=== PATIENT | male | born 1955 | race African-American/Black ===

== ENCOUNTER 2020-11-13 12:26 | Emergency (ER) | payer MEDICARE, MEDICAID, SELFPAY ==
[2020-11-13] VITALS (7 sets, daily range): BP systolic 134–148; BP diastolic 60–74; PULSE 65–70; RESP 14–20; TEMP 36.8; O2SAT 99–100
--- NOTE | ~2020-11-13 | XR_ITS ---
EXAMINATION: XR chest 1V EXAM DATE: 11/13/2020 13:00 INDICATION: Slurred speech. Stroke. TECHNIQUE: Portable AP frontal chest x-ray was obtained. Comparison is made to prior examination from 03/03/2017. FINDINGS: The lungs are clear. There are no pleural effusions. The cardiomediastinal silhouette is within normal limits. There is no pneumothorax suspected. The bones and soft tissues are unremarkab le. IMPRESSION: No acute cardiopulmonary findings. Reviewed, dictated and finalized at location B. NOMETER ASSEMBLER AND ADJUSTER
--- NOTE | ~2020-11-13 | CT_ITS ---
EXAMINATION: CTA brain carotid DATE: 11/13/2020 13:00 INDICATION: Left hemiparesis. Slurred speech. TECHNIQUE: Computed tomographic angiography (CTA) of the head was performed without and with 100 mL O mnipaque-350 intravenous contrast. CTA of the neck was performed with intravenous contrast. Automated exposure control and iterative reconstruction technique were employed. The dose-length product was 1 699.32 mGy-cm. Maximum intensity projection and volume rendered 3D-reconstructions were created by cristina arzate technologist on a separate workstation. COMPARISON: Head CT 03/03/2017 FINDINGS: HEAD CTA: There are old infarcts in the right cerebellum, susan, and right frontal lobe. There is an o ld infarct in left parietal lobe. There are scattered areas of low attenuation in the cerebral white matter. There is no intracranial hemorrhage, acute infarction, or abnormal intracranial mass lesion. The ventricles are normal in size. The paranasal sinuses are clear. The orbits are normal. The mastoi d air cells are normal. The vertebral arteries are codominant. There is no significant stenosis of ba silar artery or the posterior cerebral arteries. There is moderate stenosis of the intracranial inter nal carotid arteries. Anterior communicating artery is normal. The posterior communicating arteries a re normal. There is no aneurysm. NECK CTA: There are multiple nodules in the thyroid measuring up to 18 mm on the right. There is no s ignificant stenosis of the vertebral arteries. There is plaque in the proximal internal carotid arter ies. There is 0% stenosis of the proximal right internal carotid artery relative to normal distal ar enrike lumen diameter (NASCET criteria). There is 66% stenosis of the proximal left internal carotid ar enrike relative to normal distal artery lumen diameter. There is severe cervical spondylosis. IMPRESSION: 1. Multiple old infarcts in the brain. 2. Stable moderate nonspecific cerebral white matter disease, which likely represents chronic small v essel ischemic disease. 3. 0% stenosis of the proximal right internal carotid artery relative to normal distal artery lumen d iameter (NASCET criteria). 4. 66% stenosis of the proximal left internal carotid artery relative to normal distal artery lumen d iameter. 5. Multinodular goiter. Consider thyroid ultrasound for risk stratification. Reviewed, dictated and finalized at location A. R SHOP SUPERVISOR IMPRESSION: 1. Multiple old infarcts in the brain. 2. Stable moderate nonspecific cerebral white matter disease, which likely repr esents chronic small vessel ischemic disease. 3. 0% stenosis of the proximal right internal carotid artery relative to normal distal artery lumen diameter (NASCET criteria). 4. 66% stenosis of the proximal left internal carotid artery relative to normal distal artery lumen diameter. 5. Multinodular goiter. Consider thyroid ultrasound for risk stratification.
--- NOTE | 2020-11-13 12:36 | ECG_ITS ---
Measurements Intervals [place] Rate: 64 P: 58 DE: 198 QRS: -3 QRSD: 93 T: 10 QT: 391 QTc: 405 Interpretive Statements SINUS RHYTHM VOLTAGE CRITERIA FOR LVH BASELINE ARTIFACT- I, III, AVL, AVF BORDERLINE ECG Electronically Signed On 11-13-2020 12:55:58 ONLINE MARKETING DIRECTOR by Juanjo Prescott D.O.
[2020-11-13 12:47] LABS: Estimated CRCL calculation 46 ml/min; Estimated Glomerular Filt Rate 53
[2020-11-13 13:06] LABS: Glucose Point of Care 449 (65-105)
[2020-11-13 13:08] LABS: Basophils Absolute Auto 0.1 K/mm3 (0.0-0.1); Eosinophils Absolute Auto 0.1 K/mm3 (0-0.3); Eosinophils Percent Auto 1.7 % (0-4.4); Hematocrit 35.2 % (42.0-52.0); Immature Granulocyte Absolute 0.01 K/mm3 (0.00-0.031); Immature Granulocyte Percent A 0.2 % (0-0.5); Immature Platelet Fraction Pct 4.3 % (0.9-11.2); Lymphocytes Absolute Auto 1.14 K/mm3 (0.9-3.2); Lymphocytes Percent Auto 19.8 % (18.3-44.2); Mean Corpuscular HGB Conc 31.3 g/dl (32-36); Mean Corpuscular Hemoglobin 21.2 pg (26-34); Mean Platelet Volume 11.4 fl (7.4-10.4); Monocytes Absolute Auto 0.5 K/mm3 (0.1-0.6); Monocytes Percent Auto 8.5 % (2.6-8.5); Neutrophils Percent Auto 68.8 % (45.5-73.1); Platelet Count Result 247 k/mm3 (150-375); Red Blood Count 5.18 M/mm3 (4.6-6.20); Red Cell Distribution Width 15.9 % (11.5-14.5); White Blood Count 5.8 K/mm3 (4.5-10.0)
[2020-11-13 13:17] LABS: INR 0.9; Prothrombin Time 12.5 Seconds (11.1-14.7)
[2020-11-13 13:18] LABS: Partial Thromboplastin Time 22.5 SECONDS (22.3-36.8)
--- NOTE | 2020-11-13 13:19 | ED.NEUROSD ---
HPI - Neuro Symptoms/Deficit General Chief Complaint: Suspected CVA Stated Complaint: neuro defiects Time Seen by Provider: 11/13/20 12:35 Source: patient and family Mode of arrival: ambulatory Limitations: no limitations History of Present Illness HPI Narrative: Patient is a 65-year-old male complaining of slurred speech accompanied by left-sided weakness, numbness and unsteady gait due to the left-sided weakness that started approximately two and half hours prior to arrival, around 10:30 AM . Patient states that he has a history of strokes, had two of them, last one was couple years ago. Patient denies any visual disturbance. Patient states that he did have left-sided weakness that was very mild as a residual from his previous stroke but this morning the weakness is worse and unable to walk. Patient states he usually walks without any assist. Related Data Allergies Allergy/AdvReac Type Severity Reaction Status Date / Time No Known Allergies Allergy Unverified 03/02/17 23:58 Review of Systems Review of Systems: All systems reviewed & are unremarkable except as noted in HPI and below Constitutional: Constitutional: Denies body ache(s), Denies chills, Denies excessive sweating, Denies fatigue, Denies fever(s), Denies headache(s), Denies lethargy, Denies malaise and Denies weight loss Eyes: Eyes: Denies blurry vision, Denies change in vision and Denies loss of vision ENT: Denies dizziness, Denies ear discharge, Denies headache(s), Denies lip swelling, Denies epistaxis, Denies nasal congestion, Denies neck pain, Denies throat swelling and Denies tongue swelling Cardiovascular: Cardiovascular: Denies chest pain, Denies chest pain at rest, Denies chest pain with activity, Denies diaphoresis, Denies rapid heart rate, Denies edema, Denies irregular heart rhythm, Denies lightheadedness, Denies palpitations, Denies dyspnea and Denies dyspnea on exertion Respiratory: Respiratory: Denies chest congestion, Denies cough, Denies hemoptysis, Denies dyspnea and Denies dyspnea on exertion Gastrointestinal: Gastrointestinal: Denies abdominal pain, Denies melena, Denies hematochezia, Denies diarrhea, Denies nausea, Denies vomiting and Denies hematemesis Musculoskeletal: Musculoskeletal: Denies abnormal gait, Denies deformity, Denies joint swelling, Denies limited range of motion, Denies neck pain and Denies numbness Neurologic: Denies confusion, Denies dizziness, Denies headache(s), Denies focal weakness, Denies numbness and Denies weakness Psychiatric: Psychiatric: Denies confusion, Denies depression, Denies auditory hallucinations, Denies homicidal ideation and Denies suicidal ideation Endocrine: Endocrine: Denies cold intolerance, Denies excessive sweating, Denies fatigue, Denies heat intolerance and Denies palpitations Hematologic/Lymphatic: Hematologic/Lymphatic: Denies easy bleeding and Denies easy bruising Allergic/Immunologic: Allergic/Immunologic: Denies lip swelling, Denies throat swelling and Denies tongue swelling PMFSH Comments Past medical history: CVA, hypertension, hyperlipidemia, diabetes Family history: Hypertension Social history ex-smoker, no EtOH or drug use Exam Const: General: cooperative, healthy appearing, comfortable, no acute distress, well developed, alert and awake; No confusion Orientation/consciousness: oriented to person, oriented to place, oriented to time, patient oriented x3 and No confusion Limitations: no limitations HENMT: Head: normal to inspection, normocephalic and atraumatic Ears: hearing grossly normal bilaterally, TM normal on the right and TM normal on the left General nose exam: Normal external nose present, Normal nares present and No nasal discharge present Face and sinus: normal facial exam Mouth: Yes Normal oral and palatal mucosa present, Yes lip normal, Yes tongue normal and Yes oropharynx normal Throat: posterior oropharynx normal, tonsils normal and uvula midline Eyes: General: appearance nor
[2020-11-13 13:45] LABS: Potassium 4.5 mmol/L (3.4-5.0)
[2020-11-13] MEDS: LACTATED RINGERS 1,000 ML 999 ML IV CONT (13:45)
[2020-11-13 13:47] LABS: Alanine Aminotransferase 22 U/L (4-50); Alkaline Phosphatase 138 U/L (38-126); Anion Gap 10 mmol/L (8-16); Aspartate Amino Transferase 25 U/L (17-59); Bilirubin,Total 0.4 mg/dL (0.2-1.3); Blood Urea Nitrogen 25 mg/dL (9-20); Calcium 9.1 mg/dL (8.4-10.2); Carbon Dioxide 23 mmol/L (22-30); Chloride 101 mmol/L (98-107); Estimated CRCL calculation 48 ml/min; Estimated Glomerular Filt Rate 57; Glucose 386 mg/dL (75-110); Sodium 134 mmol/L (137-145)
[2020-11-13 13:57] LABS: Troponin I < 0.012 ng/mL (0.000-0.034)
== END 2020-11-13 14:39 | disposition short-term general hospital (02) ==
LOC: ANHED 14:21
PROVIDERS: Emergency Provider Emergency Medicine; PCP Internal Medicine Infectious Disease
DX: I63.9 Cerebral infarction, unspecified (principal); R29.701 NIHSS score 1; I69.954 Hemiplegia and hemiparesis following unspecified cerebrovascular disease affecting left non-dominant side; I10 Essential (primary) hypertension; E78.5 Hyperlipidemia, unspecified; E11.9 Type 2 diabetes mellitus without complications; Z87.891 Personal history of nicotine dependence; R94.31 Abnormal electrocardiogram [ECG] [EKG]
CPT/HCPCS: 70496; 70498; 71045; 80053; 82948; 84484; 85025; 85055; 85610; 85730; 93005; 96365; 99284; J2997; J7120; Q9967

== ENCOUNTER 2020-11-20 13:50 | IRF | payer MEDICARE, MEDICAID, SELFPAY ==
--- NOTE | ~2020-11-20 | XR_ITS ---
EXAMINATION: XR barium swallow modified EXAM DATE: 11/22/2020 12:53 INDICATION: Dysphagia. Stroke. Cough. TECHNIQUE: Modified barium esophagram was performed by myself to administered fluoroscopy, in conjun ction with speech pathologist who administered barium in varying consistencies as per speech patholog ist documentation. This was recorded on tape. The DAP for this procedure was 1.3 Gycm2. FINDINGS: Oral stage: Premature spillage. Pharyngeal phase: Adequate function. Laryngeal penetration: None. Aspiration: None. Laryngeal sensitivity: Present. IMPRESSION: Patient tolerated oral feedings in the upright position. Please refer to speech patholo gist findings and specific feeding recommendations. Reviewed, dictated and finalized at location A. IMPRESSION: Patient tolerated oral feedings in the upright position. Please r efer to speech pathologist findings and specific feeding recommendations.
[2020-11-20 13:50] VITALS: BP 160/79; PULSE 81; RESP 18; TEMP 36.2; O2SAT 100; BMI 27.5
--- NOTE | 2020-11-20 14:17 | ADMGEN ---
This patient, Raza Radford, was admitted to [facility] Room 226-02. Patient/family oriented to hospital policies and general routines including ID bracelet, bed and alarms, visiting hours, pain management, procedures, bathroom and other care routines, personal items, smoking policy, room service/diet, and visiting hours. Information on how to activate the Rapid Response Team has been discussed. Patient/Family are encouraged to report perceived risks to care and to ask questions if they do not understand what they are told or what they should do.
--- NOTE | 2020-11-20 15:13 | WPDREHABHP ---
H&P: HPI History of Present Illness Date/Time: 11/20/20 15:13 Chief Complaint: HISTORY OF PRESENT ILLNESS: The patient's primary rehab impairment category is stroke The etiologic diagnosis is left upper susan acute infarct I saw this patient [id number] on 11/20/2020 The patient is a [] Therapy was initiated at the acute care facility and the patient transferred to us from [[facility]] on [] FALLS OR SURGERIES: The patient has had [no] major surgeries in the 100 days prior to admission. They had [no] falls in the past year. They had [no] falls with injury in the past year. PAST MEDICAL HISTORY: hypertension, hyperlipidemia diabetes mellitus, residual dysarthria, residual left-sided weakness, right pontine stroke. [] PAST SURGICAL HISTORY: [] SOCIAL HISTORY: [] FAMILY HISTORY: [] PRIOR LEVEL OF FUNCTION: Eating was [INDEPENDENT] Oral Care was [INDEPENDENT] Toileting Hygiene was [INDEPENDENT] Shower/Bathing was [INDEPENDENT] Upper Body Dressing was [INDEPENDENT] Lower Body Dressing was [INDEPENDENT] Donning/Almyra Footwear was [INDEPENDENT] Rolling Left and Right was [INDEPENDENT] Sit to Lying was [INDEPENDENT] Lying to Sitting was [INDEPENDENT] Sit to Stand was [INDEPENDENT] Bed to Chair Transfers was [INDEPENDENT] Toilet Transfers was [INDEPENDENT] Walking was [INDEPENDENT] [>500 feet] with [NO DEVICE] Wheelchair Mobility was [NOT APPLICABLE PRIOR TO ADMISSION] Stairs were [INDEPENDENT] CURRENT LEVEL OF FUNCTION: Eating was [SET UP ONLY] Oral Care was [SET UP ONLY] Toileting Hygiene was [] Shower/Bathing was [] Upper Body Dressing was [] Lower Body Dressing was [] Donning/Almyra Footwear was [] Rolling Left and Right was [] Sit to Lying was [] Lying to Sitting was [] Sit to Stand was [] Bed to Chair Transfers were [] Toilet Transfers were [] Walking was [] Wheelchair Mobility was [] Stairs were [] GOALS: Our therapists will evaluate the patient and establish the goals. However, upon pre-admission screening, the expected goals were to be [INDEPENDENT] with self-care, [INDEPENDENT] with transfers, and [INDEPENDENT] with functional mobility so that the patient can return home. ESTIMATED LENGTH OF STAY: [10-14 days] POTENTIAL BARRIERS TO DISCHARGE: [Patient lives alone.] [Family needs training.] [Severity of condition.] [Architectural barriers.] ACTIVE CO-MORBIDITIES PRESENT ON ADMISSION: Active co-morbidities include []. The above co-morbidities impact the patient's function and/or functional outcome by [] [facility] Family History Family History (Updated 11/20/20 @ 14:53 by Valerie Cook RN) Mother Diabetes mellitus Cerebrovascular accident Hypertension Father Cerebrovascular accident Hypertension Social History Social History Smoking status: Former smoker Alcohol intake: former Substance use: former Gender identity (if verbalized by the patient): Male Spiritual care concerns: No Meds Home Medications and Allergies Home Medications Medication Instructions Recorded Confirmed Type amlodipine 11/13/20 History atorvastatin 11/13/20 11/13/20 History carvedilol 11/13/20 History citalopram mg 11/13/20 History clopidogrel 11/13/20 History enalapril maleate 11/13/20 History glimepiride mg 11/13/20 History hydrochlorothiazide 11/13/20 History insulin glargine [Lantus Solostar SUBCUT 11/13/20 History U-100 Insulin] Allergies Allergy/AdvReac Type Severity Reaction Status Date / Time No Known Allergies Allergy Unverified 03/02/17 23:58 Vital Signs Vital Signs - 24 hr 11/20/20 13:50 Temperature 36.2 C L Pulse Rate 81 Respiratory Rate 18 Blood Pressure 160/79 H Pulse Oximetry 100
--- NOTE | 2020-11-20 15:58 | WPDREHABHP ---
H&P: HPI History of Present Illness Date/Time: 11/20/20 15:58 Chief Complaint: CVA Narrative: The patient's primary rehab impairment category is: Stroke The etiological diagnosis is left upper susan acute infarct Patient was seen [id number] on 11/20/2020 this is a 65-year-old male with past medical history of hypertension, hyperlipidemia, diabetes mellitus and 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 CT of the of the brain showed no acute stroke. CT AA was negative for large vessel occlusion. Patient was given tPA for an NIH SS of 4 and was transferred to [facility]. MRI showed a small acute infarct in the left upper susan. CTA was notable for 60% stenosis in the left extracranial ICA. Echo showed an ejection fraction of of 67%. Patient was placed on aspirin Plavix and Atrovent statin. A swallow test was performed and patient past. Hospital course revealed impaired balance, decreased safety awareness, left-sided weakness, decreased gross motor is controlled. Patient also complained of backache and flank pain he was evaluate for retroperitoneal hematoma in the setting of a tPA administration. Ultrasound was negative. Back pain resolved on 11/16/2020. COVID: The patient has not traveled outside the [place] are had contact with someone who is ill that has traveled outside the [place] in the past 21 days. Patient has not traveled to an area of the [place] that is experiencing known transmission of the Coronavirus and has not had close personal contact with anyone that has. Patient does not have a fever. The patient is not experiencing lower respiratory illness symptoms. COVID test was negative on 11/19/2020. Therapy was initiated at the acute care facility and the patient is being transferred to us from [facility] on 11/20/2020. FALLS OR SURGERIES: The patient has had no major surgeries in the 100 days prior to admission. They had no falls in the past year. They had no falls with injury in the past year. PRIOR LEVEL OF FUNCTION: Eating was [INDEPENDENT] Oral Care was [INDEPENDENT] Toileting Hygiene was [INDEPENDENT] Shower/Bathing was [INDEPENDENT] Upper Body Dressing was [INDEPENDENT] Lower Body Dressing was [INDEPENDENT] Donning/Kiefer Footwear was [INDEPENDENT] Rolling Left and Right was [INDEPENDENT] Sit to Lying was [INDEPENDENT] Lying to Sitting was [INDEPENDENT] Sit to Stand was [INDEPENDENT] Bed to Chair Transfers was [INDEPENDENT] Toilet Transfers was [INDEPENDENT] Walking was [INDEPENDENT] [>500 feet] with cane and walker Wheelchair Mobility was NOT APPLICABLE PRIOR TO ADMISSION Stairs were INDEPENDENT CURRENT LEVEL OF FUNCTION: Eating was independent Oral Care was partial to moderate assist Toileting Hygiene was partial to moderate assist Shower/Bathing was partial to moderate assist Upper Body Dressing was partial to moderate assist Lower Body Dressing was supervision or touching assistance Donning/Kiefer Footwear was supervision or touching assistance Rolling Left and Right was supervision or touching assistance Sit to Lying was supervision or touching assistance Lying to Sitting was partial to moderate assist Sit to Stand was partial to moderate assist Bed to Chair Transfers were partial to moderate assist Toilet Transfers were partial to moderate assist Walking was 60 ft with a roller walker and partial to moderate assistance. Wheelchair Mobility was Not tested Stairs were not test GOALS: Our therapists will evaluate the patient and establish the goals. However, upon pre-admission screening, the expected goals were to be [INDEPENDENT] with self-care, [INDEPENDENT] with transfers, and [INDEPENDENT] with functional mobility so that the patient can return home. ESTIMATED LENGTH OF STAY: 7-10 days POTENTIAL BARRI
[2020-11-20 16:55] LABS: Glucose Point of Care 119 (65-105)
[2020-11-20] MEDS: INSULIN GLARGINE (*BKC) 100 UNITS/ML 10 UNITS SUB-Q (17:47)
[2020-11-20] MEDS: INSULIN ASPART (*BKC) 100 UNITS/ML 12 UNITS SUB-Q (17:49)
[2020-11-20 20:37] VITALS: BP 131/80; PULSE 73; RESP 18; TEMP 36.2; O2SAT 100
[2020-11-20 21:43] VITALS: PULSE 68
[2020-11-20] MEDS: ATORVASTATIN 40 MG TABLET PO (21:43)
[2020-11-20] MEDS: carvediloL 6.25 MG TABLET PO (21:43)
[2020-11-20 21:52] LABS: Glucose Point of Care 64 (65-105)
--- NOTE | 2020-11-20 22:13 | PC.NURSE ---
Novolog not given. BS 66. notified.
--- NOTE | 2020-11-20 22:53 | PC.NURSE ---
Pt 2100 dose of insulin held due to low BS. Dr Taqueria Pike made aware.
[2020-11-21 01:11] LABS: Glucose Point of Care 281 (65-105)
[2020-11-21 05:23] VITALS: BP 124/65; PULSE 67; RESP 18; TEMP 36.2; O2SAT 100
[2020-11-21 05:28] LABS: Anion Gap 5 mmol/L (8-16); Blood Urea Nitrogen 19 mg/dL (9-20); Calcium 8.7 mg/dL (8.4-10.2); Carbon Dioxide 28 mmol/L (22-30); Chloride 103 mmol/L (98-107); Estimated CRCL calculation 45 ml/min; Estimated Glomerular Filt Rate > 60; Glucose 191 mg/dL (75-110); Potassium 4.6 mmol/L (3.4-5.0); Sodium 136 mmol/L (137-145)
[2020-11-21 05:39] LABS: Basophils Absolute Auto 0.1 K/mm3 (0.0-0.1); Basophils Percent Auto 0.8 % (0.2-1.2); Eosinophils Absolute Auto 0.1 K/mm3 (0-0.3); Eosinophils Percent Auto 0.8 % (0-4.4); Hematocrit 34.6 % (42.0-52.0); Hemoglobin 10.8 g/dL (14.0-18.0); Immature Granulocyte Absolute 0.03 K/mm3 (0.00-0.031); Immature Granulocyte Percent A 0.3 % (0-0.5); Lymphocytes Absolute Auto 2.32 K/mm3 (0.9-3.2); Lymphocytes Percent Auto 25.4 % (18.3-44.2); Mean Corpuscular HGB Conc 31.2 g/dl (32-36); Mean Corpuscular Hemoglobin 21.1 pg (26-34); Mean Corpuscular Volume 67.4 fl (80-100); Mean Platelet Volume 10.4 fl (7.4-10.4); Monocytes Absolute Auto 0.9 K/mm3 (0.1-0.6); Monocytes Percent Auto 9.5 % (2.6-8.5); Neutrophils Absolute Auto 5.8 K/mm3 (1.3-6.7); Neutrophils Percent Auto 63.2 % (45.5-73.1); Platelet Count Result 277 k/mm3 (150-375); Red Blood Count 5.13 M/mm3 (4.6-6.20); Red Cell Distribution Width 15.7 % (11.5-14.5); White Blood Count 9.1 K/mm3 (4.5-10.0)
[2020-11-21 06:16] LABS: Glucose Point of Care 151 (65-105)
[2020-11-21] MEDS: ASPIRIN 81 MG CHEWABLE TABLET PO (08:41)
[2020-11-21] MEDS: SENNA/DOCUSATE SODIUM TABLET 1 TAB PO (08:41)
[2020-11-21] MEDS: CITALOPRAM HYDROBROMIDE 20 MG TABLET PO (08:41)
[2020-11-21] MEDS: ENALAPRIL MALEATE 10 MG TABLET 20 MG PO (08:41)
[2020-11-21] MEDS: hydroCHLOROthiazide 25 MG TABLET PO (08:41)
[2020-11-21] MEDS: metFORMIN HCL 500 MG TABLET PO (08:41)
[2020-11-21 08:42] VITALS: PULSE 66
[2020-11-21] MEDS: CLOPIDOGREL BISULFATE 75 MG TABLET PO (08:42)
[2020-11-21] MEDS: carvediloL 6.25 MG TABLET PO ×2 (08:42→21:19)
[2020-11-21] MEDS: INSULIN ASPART (*BKC) 100 UNITS/ML 12 UNITS SUB-Q (08:44)
[2020-11-21 08:55] LABS: Glucose Point of Care 267 (65-105)
--- NOTE | 2020-11-21 11:18 | WPDNEURORHBP ---
Subjective Date/time seen: 11/21/20 11:18 Interval history: this is a 65-year-old male who has been on the rehab unit from a prior stroke. Patient is being admitted for further stroke rehabilitation following a small acute infarct to the left upper susan. 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 Patient is requesting a podiatry consult. Patient voices no complaints. Review of Systems Review of Systems: All systems reviewed & are unremarkable except as noted in HPI and below Functional Status Transfers Ability Ability to Transfer In/Out of Chair: Minimum Assistance X 1 Exam Narrative: Exam Narrative: Head is normocephalic. Facial asymmetry is noted. Speech is dysarthric. Heart rate and rhythm is regular. Lungs are clear to auscultation. Abdomen is soft nontender. Musculoskeletal exam reveals good strength bilaterally. Patient does demonstrate impulsivity. Patient also demonstrates balance deficits and motor coordination deficits. Objective Data Vital Signs Vital Signs: Vital Signs - 24 hr 11/20/20 13:50 11/20/20 20:37 11/20/20 21:43 Temperature 36.2 C L 36.2 C L Pulse Rate 81 73 68 Respiratory Rate 18 18 Blood Pressure 160/79 H 131/80 Pulse Oximetry 100 100 11/21/20 05:23 11/21/20 08:42 Temperature 36.2 C L Pulse Rate 67 66 Respiratory Rate 18 Blood Pressure 124/65 Pulse Oximetry 100 Intake/Output Intake/Output: Intake & Output 11/18/20 11/19/20 11/20/20 11/21/20 23:59 23:59 23:59 23:59 Intake Total 240 240 Balance 240 240 Meds/Results Medications: Active Medications Generic Name Dose Route Start Last Admin Trade Name Freq PRN Reason Stop Dose Admin Acetaminophen 650 mg 11/20/20 15:39 Acetaminophen 325 Mg Tablet PO Q4H PRN Mild Pain (1-3) Aspirin 81 mg 11/21/20 09:00 11/21/20 08:41 Aspirin 81 Mg Chewable Tablet PO 12/21/20 09:01 81 mg DAILY ASA Administration Atorvastatin Calcium 40 mg 11/20/20 21:00 11/20/20 21:43 Atorvastatin 40 Mg Tablet PO 40 mg HS ASA Administration Carvedilol 6.25 mg 11/20/20 21:00 11/21/20 08:42 Carvedilol 6.25 Mg Tablet PO 6.25 mg Q12HR ASA Administration Citalopram Hydrobromide 20 mg 11/21/20 09:00 11/21/20 08:41 Citalopram Hydrobromide 20 Mg Tablet PO 20 mg QAM ASA Administration Clopidogrel Bisulfate 75 mg 11/21/20 09:00 11/21/20 08:42 Clopidogrel Bisulfate 75 Mg Tablet PO 75 mg DAILY ASA Administration Enalapril Maleate 20 mg 11/21/20 09:00 11/21/20 08:41 Enalapril Maleate 10 Mg Tablet PO 20 mg DAILY ASA Administration Hydrochlorothiazide 25 mg 11/21/20 09:00 11/21/20 08:41 Hydrochlorothiazide 25 Mg Tablet PO 25 mg DAILY ASA Administration Insulin Aspart 12 units 11/20/20 17:00 11/21/20 08:44 Insulin Aspart (*Bkc) 100 Units/Ml SUB-Q 12 units QID ASA Administration Insulin Glargine 10 units 11/20/20 18:00 11/20/20 17:47 Insulin Glargine (*Bkc) 100 Units/Ml SUB-Q 10 units QPM ASA Administration Metformin HCl 500 mg 11/21/20 08:00 11/21/20 08:41 Metformin Hcl 500 Mg Tablet PO 11/26/20 10:00 500 mg DAILY@0800 ASA Administration Metformin HCl 500 mg 11/27/20 08:00 Metformin Hcl 500 Mg Tablet PO BIDWM [facility] Polyethylene Glycol 17 gm 11/20/20 15:39 Polyethylene Glycol 3350 17 Gm Powd.Pack PO DAILY PRN Constipation Senna/Docusate Sodium 1 tab 11/21/20 09:00 11/21/20 08:41 Senna/Docusate Sodium Tablet PO 1 tab DAILY ASA Administration Labs Labs: Laboratory Results - last 24 hr 11/20/20 11/20/20 11/21/20 16:52 21:42 01:08 WBC RBC Hgb Hct MCV MCH MCHC RDW Plt Count MPV Immature Gran % (Auto) Neut % (Auto) Lymph % (Auto) [place] % (Auto) Eos % (Auto) Baso % (Auto) Lymph # (Auto) [place] # (Auto) Eos # (Auto) Baso #
[2020-11-21 11:56] LABS: Glucose Point of Care 64 (65-105)
[2020-11-21 13:09] VITALS: BMI 27.5
[2020-11-21 14:00] VITALS: BP 123/83; PULSE 77; RESP 18; TEMP 36.2; O2SAT 100
--- NOTE | 2020-11-21 15:46 | RPD ---
INDIVIDUALIZED PLAN OF CARE FOR Raza Radford Brief Synthesis of Pre-Admission Screen, Post-Admission Evaluation and Therapy Evaluations: The patient presents to rehab with an acute left upper susan acute infarct. Comorbidities include hypertension, hyperlipidemia, diabetes mellitus with hyperglycemia, carotid artery stenosis, residual dysarthria, and left-sided weakness. The complexity of the patient's medical management, nursing, and therapy needs require an inpatient rehab hospital stay with a physician-led interdisciplinary team approach. The patient?s needs will be best met in an intensive program vs. at a lower level of care. The patient requires physician services for neurology services, medical oversight, and coordination of care. Emotional needs will be monitored as depression is a common sequelae of stroke. The patient needs physician monitoring and treatment of hypertension, diabetes mellitus with hyperglycemia, monitoring for adverse reactions to new medications, monitoring of infection, and pain control. The patient requires nursing services for frequent neuro checks, anticoagulation therapy, medication management and education, pressure relief and skin care management, monitoring of labs, diabetes management and education, and fall/safety precautions. The patient will participate in stroke-specific education regarding risk modification to decrease the risk of further stroke. Deficits include:ADLs, Balance, Endurance, Family Training/Education, Mobility, ROM, Safety, Speech, Strength, and Transfers. Industrial Roofer/Case Management for: Discharge Planning and Patient/Family Counseling Physical Therapy: 5 days per week for 75 minutes. Treatments may include: Therapeutic Exercise, Gait Training, Neuromuscular Re-education, Transfer Training, Community Reintegration, Bed Mobility, Patient/Family Education, Wheelchair Mobility Group Therapy/Concurrent Therapy Rationales: -Improve attention span during functional activities in a distracted environment. -Enhance problem solving and/or adequate judgment skills during functional activities in a distracted environment. -Promote increased safety awareness in a distracted environment to reduce fall risk with functional tasks, transfers, and ambulation to allow a more safe, self-sufficient return to the home environment. -Improve dynamic balance skills to promote safety and independence with functional activities in a distracted environment for maximum gain. Occupational Therapy: 5 days per week for 75 minutes. Treatments may include: Therapeutic Exercise, Therapeutic Activity, Cognitive Training, Self-Care Transfer Training, Community Reintegration, Home Management, Patient/Family Education, Wheelchair Mobility Training, Energy Conservation Training Group Therapy/Concurrent Therapy Rationales: -Allow therapist to observe and teach generalization and carry-over of skills learned in individual therapy. -Enhance problem solving and sequencing skills during therapeutic activities in a distracted environment. -Promote increased safety awareness in a realistic setting to reduce fall risk with functional tasks due to visual and verbal distractions. -Increase functional level with ADLs, ADL transfers and use of adaptive equipment through therapeutic activities with others while promoting safety to allow a more safe, self-sufficient return home. Speech Therapy: 5 days per week for 30 minutes. Treatments may include: Dysphasia Therapy, Speech/Language/Communication Therapy, Cognitive Training, Patient/Family Education Group Therapy/Concurrent Therapy - Rationale: -Allow therapist to observe and teach generalization and carry-over of skills learned in individual therapy. -Improve comprehension skills with complex or abstract ideas through discussion in a realistic setting. -Enhance problem solving skills with complex issues during activities in a distracted environment. -Promote increased memory skills and concentration in a
[2020-11-21 17:08] LABS: Glucose Point of Care 169 (65-105)
[2020-11-21 20:54] LABS: Glucose Point of Care 327 (65-105)
[2020-11-21 21:19] VITALS: PULSE 82
[2020-11-21] MEDS: ATORVASTATIN 40 MG TABLET PO (21:19)
[2020-11-21] MEDS: INSULIN GLARGINE (*BKC) 100 UNITS/ML 10 UNITS SUB-Q (21:19)
[2020-11-21 22:00] VITALS: BP 126/76; PULSE 76; RESP 18; TEMP 36.5; O2SAT 99
[2020-11-22 05:24] VITALS: BP 136/61; PULSE 72; RESP 18; TEMP 36.4; O2SAT 100
[2020-11-22 06:53] LABS: Glucose Point of Care 185 (65-105)
[2020-11-22] MEDS: metFORMIN HCL 500 MG TABLET PO (09:02)
[2020-11-22 09:03] VITALS: PULSE 72
[2020-11-22] MEDS: CITALOPRAM HYDROBROMIDE 20 MG TABLET PO (09:03)
[2020-11-22] MEDS: hydroCHLOROthiazide 25 MG TABLET PO (09:03)
[2020-11-22] MEDS: carvediloL 6.25 MG TABLET PO ×2 (09:03→20:42)
[2020-11-22] MEDS: CLOPIDOGREL BISULFATE 75 MG TABLET PO (09:03)
[2020-11-22] MEDS: ENALAPRIL MALEATE 10 MG TABLET 20 MG PO (09:03)
[2020-11-22] MEDS: ASPIRIN 81 MG CHEWABLE TABLET PO (09:03)
[2020-11-22] MEDS: SENNA/DOCUSATE SODIUM TABLET 1 TAB PO (09:03)
[2020-11-22 12:13] LABS: Glucose Point of Care 258 (65-105)
--- NOTE | 2020-11-22 12:17 | WPDNEURORHBP ---
Subjective Date/time seen: 11/22/20 12:17 Interval history: This is a 65-year-old male who has been on the rehab unit from a prior stroke. Patient is being admitted for further stroke rehabilitation following a small acute infarct to the left upper susan. 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 Patient is requesting a podiatry consult. Unfortunately, this cannot be accommodated while on [facility] Patient was instructed on safety concerns. Patient was instructed to ask for help before getting out of bed and to be more cognizant of his surroundings and safety. Review of Systems Review of Systems: All systems reviewed & are unremarkable except as noted in HPI and below Constitutional: Constitutional: Reports as per HPI Eyes: Eyes: Reports no additional eye complaints ENT: Reports system reviewed and no additional complaints, except as documented Cardiovascular: Cardiovascular: Reports no additional cardiovascular complaints Respiratory: Respiratory: Reports no additional respiratory complaints Gastrointestinal: Gastrointestinal: Reports no additional gastrointestinal complaints Functional Status Ambulation Ability Ability to Ambulate 10 Feet: Contact Guard Ability to Ambulate 50 Feet With 2 Turns: Contact Guard Ability to Ambulate 150 Feet: Contact Guard Ambulation Assistive Devices: Walker, Wheeled Transfers Ability Ability to Transfer In/Out of Chair: Minimum Assistance X 1 Exam Narrative: Exam Narrative: Head is normocephalic. Facial asymmetry is noted. Speech is dysarthric. Heart rate and rhythm is regular. Lungs are clear to auscultation. Abdomen is soft nontender. Musculoskeletal exam reveals good strength bilaterally. Patient does demonstrate impulsivity. Patient also demonstrates balance deficits and motor coordination deficits. Objective Data Vital Signs Vital Signs: Vital Signs - 24 hr 11/21/20 14:00 11/21/20 21:19 11/21/20 22:00 Temperature 36.2 C L 36.5 C Pulse Rate 77 82 76 Respiratory Rate 18 18 Blood Pressure 123/83 126/76 Pulse Oximetry 100 99 11/22/20 05:24 11/22/20 09:03 Temperature 36.4 C Pulse Rate 72 72 Respiratory Rate 18 Blood Pressure 136/61 Pulse Oximetry 100 Intake/Output Intake/Output: Intake & Output 11/19/20 11/20/20 11/21/20 11/22/20 23:59 23:59 23:59 23:59 Intake Total 240 720 240 Balance 240 720 240 Meds/Results Medications: Active Medications Generic Name Dose Route Start Last Admin Trade Name Sangita PRN Reason Stop Dose Admin Acetaminophen 650 mg 11/20/20 15:39 Acetaminophen 325 Mg Tablet PO Q4H PRN Mild Pain (1-3) Aspirin 81 mg 11/21/20 09:00 11/22/20 09:03 Aspirin 81 Mg Chewable Tablet PO 12/21/20 09:01 81 mg DAILY ASA Administration Atorvastatin Calcium 40 mg 11/20/20 21:00 11/21/20 21:19 Atorvastatin 40 Mg Tablet PO 40 mg HS ASA Administration Carvedilol 6.25 mg 11/20/20 21:00 11/22/20 09:03 Carvedilol 6.25 Mg Tablet PO 6.25 mg Q12HR ASA Administration Citalopram Hydrobromide 20 mg 11/21/20 09:00 11/22/20 09:03 Citalopram Hydrobromide 20 Mg Tablet PO 20 mg QAM ASA Administration Clopidogrel Bisulfate 75 mg 11/21/20 09:00 11/22/20 09:03 Clopidogrel Bisulfate 75 Mg Tablet PO 75 mg DAILY ASA Administration Dextrose 12.5 gm 11/21/20 11:49 Dextrose 50% 25 Gm/50 Ml Syringe IV PUSH PRN PRN Hypoglycemia Protocol Enalapril Maleate 20 mg 11/21/20 09:00 11/22/20 09:03 Enalapril Maleate 10 Mg Tablet PO 20 mg DAILY ASA Administration Glucagon 1 mg 11/21/20 11:49 Glucagon For Inj 1 Mg Vial IM PRN PRN Hypoglycemia Protocol Glucose 15 gm 11/21/20 11:49 Glucose Oral Gel 15 Gm Of Glucse In 37.5 Gm Tube PO PRN PRN Hypoglycemia Protocol Hydrochlorothiazide 25 mg 11/21/20 09:00 11/22/20 09:03 Hydrochlorothiaz
--- NOTE | 2020-11-22 13:08 | PCSTNOTE ---
Please refer to the Modified Barium Swallow Evaluation in the EMR.
[2020-11-22] MEDS: INSULIN ASPART (*BKC) 100 UNITS/ML SUB-Q (13:47)
[2020-11-22 14:00] VITALS: BP 127/67; PULSE 80; RESP 18; TEMP 36.2; O2SAT 95
[2020-11-22 16:42] LABS: Glucose Point of Care 159 (65-105)
[2020-11-22 20:00] VITALS: PULSE 76; RESP 18; O2SAT 95
[2020-11-22 20:42] VITALS: PULSE 76
[2020-11-22] MEDS: INSULIN GLARGINE (*BKC) 100 UNITS/ML 10 UNITS SUB-Q (20:44)
[2020-11-22] MEDS: ATORVASTATIN 40 MG TABLET PO (20:44)
[2020-11-22 21:03] LABS: Glucose Point of Care 180 (65-105)
[2020-11-22 22:00] VITALS: BP 143/60; PULSE 71; RESP 18; TEMP 36.1; O2SAT 100
[2020-11-23] VITALS (7 sets, daily range): BP systolic 123–135; BP diastolic 57–63; PULSE 64–70; RESP 16–18; TEMP 35.9–36.3; O2SAT 98–100
[2020-11-23 06:46] LABS: Glucose Point of Care 167 (65-105)
[2020-11-23] MEDS: CITALOPRAM HYDROBROMIDE 20 MG TABLET PO (09:03)
[2020-11-23] MEDS: CLOPIDOGREL BISULFATE 75 MG TABLET PO (09:03)
[2020-11-23] MEDS: carvediloL 6.25 MG TABLET PO ×2 (09:03→20:36)
[2020-11-23] MEDS: metFORMIN HCL 500 MG TABLET PO (09:03)
[2020-11-23] MEDS: SENNA/DOCUSATE SODIUM TABLET 1 TAB PO (09:04)
[2020-11-23] MEDS: ENALAPRIL MALEATE 10 MG TABLET 20 MG PO (09:04)
[2020-11-23] MEDS: hydroCHLOROthiazide 25 MG TABLET PO (09:04)
[2020-11-23] MEDS: ASPIRIN 81 MG CHEWABLE TABLET PO (09:04)
--- NOTE | 2020-11-23 10:15 | WPDNEURORHBP ---
Subjective Date/time seen: 11/23/20 10:15 Interval history: This is a 65-year-old male who has been on the rehab unit from a prior stroke. Patient is being admitted for further stroke rehabilitation following a small acute infarct to the left upper susan. 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 Patient was instructed on safety concerns. Patient was instructed to ask for help before getting out of bed and to be more cognizant of his surroundings and safety. Review of Systems Review of Systems: All systems reviewed & are unremarkable except as noted in HPI and below Constitutional: Constitutional: Reports as per HPI Eyes: Eyes: Reports no additional eye complaints ENT: Reports system reviewed and no additional complaints, except as documented Cardiovascular: Cardiovascular: Reports no additional cardiovascular complaints Respiratory: Respiratory: Reports no additional respiratory complaints Gastrointestinal: Gastrointestinal: Reports no additional gastrointestinal complaints Functional Status Ambulation Ability Ability to Ambulate 10 Feet: Standby Assistance Ability to Ambulate 50 Feet With 2 Turns: Standby Assistance Ability to Ambulate 150 Feet: Contact Guard Ambulation Assistive Devices: Walker, Wheeled Transfers Ability Ability to Transfer In/Out of Chair: Minimum Assistance X 1 Exam Narrative: Exam Narrative: Head is normocephalic. Facial asymmetry is noted. Speech is dysarthric. Heart rate and rhythm is regular. Lungs are clear to auscultation. Abdomen is soft nontender. Musculoskeletal exam reveals good strength bilaterally. Patient does demonstrate impulsivity. Patient also demonstrates balance deficits and motor coordination deficits. Transfers at SBA/Gait is CGA. Impulsivity affects safety. Objective Data Vital Signs Vital Signs: Vital Signs - 24 hr 11/22/20 14:00 11/22/20 20:00 11/22/20 20:42 Temperature 36.2 C L Pulse Rate 80 76 76 Respiratory Rate 18 18 Blood Pressure 127/67 Pulse Oximetry 95 95 11/22/20 22:00 11/23/20 04:58 11/23/20 09:03 Temperature 36.1 C L 35.9 C L Pulse Rate 71 70 70 Respiratory Rate 18 16 Blood Pressure 143/60 H 129/61 Pulse Oximetry 100 98 Intake/Output Intake/Output: Intake & Output 11/20/20 11/21/20 11/22/20 11/23/20 23:59 23:59 23:59 23:59 Intake Total 240 720 720 240 Balance 240 720 720 240 Meds/Results Medications: Active Medications Generic Name Dose Route Start Last Admin Trade Name Sangita PRN Reason Stop Dose Admin Acetaminophen 650 mg 11/20/20 15:39 Acetaminophen 325 Mg Tablet PO Q4H PRN Mild Pain (1-3) Aspirin 81 mg 11/21/20 09:00 11/23/20 09:04 Aspirin 81 Mg Chewable Tablet PO 12/21/20 09:01 81 mg DAILY ASA Administration Atorvastatin Calcium 40 mg 11/20/20 21:00 11/22/20 20:44 Atorvastatin 40 Mg Tablet PO 40 mg HS ASA Administration Carvedilol 6.25 mg 11/20/20 21:00 11/23/20 09:03 Carvedilol 6.25 Mg Tablet PO 6.25 mg Q12HR ASA Administration Citalopram Hydrobromide 20 mg 11/21/20 09:00 11/23/20 09:03 Citalopram Hydrobromide 20 Mg Tablet PO 20 mg QAM ASA Administration Clopidogrel Bisulfate 75 mg 11/21/20 09:00 11/23/20 09:03 Clopidogrel Bisulfate 75 Mg Tablet PO 75 mg DAILY ASA Administration Dextrose 12.5 gm 11/21/20 11:49 Dextrose 50% 25 Gm/50 Ml Syringe IV PUSH PRN PRN Hypoglycemia Protocol Enalapril Maleate 20 mg 11/21/20 09:00 11/23/20 09:04 Enalapril Maleate 10 Mg Tablet PO 20 mg DAILY ASA Administration Glucagon 1 mg 11/21/20 11:49 Glucagon For Inj 1 Mg Vial IM PRN PRN Hypoglycemia Protocol Glucose 15 gm 11/21/20 11:49 Glucose Oral Gel 15 Gm Of Glucse In 37.5 Gm Tube PO PRN PRN Hypoglycemia Protocol Hydrochlorothiazide 25 mg 11/21/20 09:00 11/23/20 09:04 Hydrochl
[2020-11-23 11:51] LABS: Glucose Point of Care 191 (65-105)
[2020-11-23 16:51] LABS: Glucose Point of Care 195 (65-105)
[2020-11-23] MEDS: ATORVASTATIN 40 MG TABLET PO (20:36)
[2020-11-23] MEDS: INSULIN GLARGINE (*BKC) 100 UNITS/ML 10 UNITS SUB-Q (20:37)
[2020-11-23 21:55] LABS: Glucose Point of Care 269 (65-105)
[2020-11-24 05:38] VITALS: BP 123/79; PULSE 62; TEMP 36.1; O2SAT 100
[2020-11-24 06:41] LABS: Glucose Point of Care 143 (65-105)
[2020-11-24] MEDS: metFORMIN HCL 500 MG TABLET PO (08:15)
[2020-11-24 08:16] VITALS: PULSE 62
[2020-11-24] MEDS: ENALAPRIL MALEATE 10 MG TABLET 20 MG PO (08:16)
[2020-11-24] MEDS: CLOPIDOGREL BISULFATE 75 MG TABLET PO (08:16)
[2020-11-24] MEDS: ASPIRIN 81 MG CHEWABLE TABLET PO (08:16)
[2020-11-24] MEDS: carvediloL 6.25 MG TABLET PO ×2 (08:16→20:18)
[2020-11-24] MEDS: CITALOPRAM HYDROBROMIDE 20 MG TABLET PO (08:16)
[2020-11-24] MEDS: SENNA/DOCUSATE SODIUM TABLET 1 TAB PO (08:16)
[2020-11-24] MEDS: hydroCHLOROthiazide 25 MG TABLET PO (08:16)
--- NOTE | 2020-11-24 08:23 | WPDNEURORHBP ---
Subjective Date/time seen: 11/24/20 08:23 Interval history: This is a 65-year-old male who has been on the rehab unit from a prior stroke. Patient is being admitted for further stroke rehabilitation following a small acute infarct to the left upper susan. 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 Patient was instructed on safety concerns. Patient was instructed to ask for help before getting out of bed and to be more cognizant of his surroundings and safety. Review of Systems Review of Systems: All systems reviewed & are unremarkable except as noted in HPI and below Constitutional: Constitutional: Reports as per HPI Eyes: Eyes: Reports no additional eye complaints ENT: Reports system reviewed and no additional complaints, except as documented Cardiovascular: Cardiovascular: Reports no additional cardiovascular complaints Respiratory: Respiratory: Reports no additional respiratory complaints Gastrointestinal: Gastrointestinal: Reports no additional gastrointestinal complaints Functional Status Ambulation Ability Ability to Ambulate 10 Feet: Standby Assistance Ability to Ambulate 50 Feet With 2 Turns: Standby Assistance Ability to Ambulate 150 Feet: Contact Guard Ambulation Assistive Devices: Walker, Wheeled Transfers Ability Ability to Transfer In/Out of Chair: Minimum Assistance X 1 Exam Narrative: Exam Narrative: Head is normocephalic. Facial asymmetry is noted. Speech is dysarthric. Heart rate and rhythm is regular. Lungs are clear to auscultation. Abdomen is soft nontender. Musculoskeletal exam reveals good strength bilaterally. Patient does demonstrate impulsivity. Patient also demonstrates balance deficits and motor coordination deficits. Transfers at SBA/Gait is CGA. Impulsivity affects safety. Biggest barrier is motor apraxia. Objective Data Vital Signs Vital Signs: Vital Signs - 24 hr 11/23/20 09:03 11/23/20 14:00 11/23/20 19:58 Temperature 36.2 C L Pulse Rate 70 64 64 Respiratory Rate 18 18 Blood Pressure 123/57 L Pulse Oximetry 99 99 11/23/20 20:36 11/23/20 21:19 11/24/20 05:38 Temperature 36.3 C L 36.1 C L Pulse Rate 68 66 62 Respiratory Rate 18 Blood Pressure 135/63 123/79 Pulse Oximetry 100 100 11/24/20 08:16 Temperature Pulse Rate 62 Respiratory Rate Blood Pressure Pulse Oximetry Intake/Output Intake/Output: Intake & Output 11/21/20 11/22/20 11/23/20 11/24/20 23:59 23:59 23:59 23:59 Intake Total 720 720 720 Balance 720 720 720 Meds/Results Medications: Active Medications Generic Name Dose Route Start Last Admin Trade Name Sangita PRN Reason Stop Dose Admin Acetaminophen 650 mg 11/20/20 15:39 Acetaminophen 325 Mg Tablet PO Q4H PRN Mild Pain (1-3) Aspirin 81 mg 11/21/20 09:00 11/24/20 08:16 Aspirin 81 Mg Chewable Tablet PO 12/21/20 09:01 81 mg DAILY ASA Administration Atorvastatin Calcium 40 mg 11/20/20 21:00 11/23/20 20:36 Atorvastatin 40 Mg Tablet PO 40 mg HS ASA Administration Carvedilol 6.25 mg 11/20/20 21:00 11/24/20 08:16 Carvedilol 6.25 Mg Tablet PO 6.25 mg Q12HR ASA Administration Citalopram Hydrobromide 20 mg 11/21/20 09:00 11/24/20 08:16 Citalopram Hydrobromide 20 Mg Tablet PO 20 mg QAM ASA Administration Clopidogrel Bisulfate 75 mg 11/21/20 09:00 11/24/20 08:16 Clopidogrel Bisulfate 75 Mg Tablet PO 75 mg DAILY ASA Administration Dextrose 12.5 gm 11/21/20 11:49 Dextrose 50% 25 Gm/50 Ml Syringe IV PUSH PRN PRN Hypoglycemia Protocol Enalapril Maleate 20 mg 11/21/20 09:00 11/24/20 08:16 Enalapril Maleate 10 Mg Tablet PO 20 mg DAILY ASA Administration Glucagon 1 mg 11/21/20 11:49 Glucagon For Inj 1 Mg Vial IM PRN PRN Hypoglycemia Protocol Glucose 15 gm 11/21/20 11:49 Glucose Oral Gel 15 Gm Of Glucse In 37.5 G
[2020-11-24 12:00] LABS: Glucose Point of Care 248 (65-105)
[2020-11-24] MEDS: INSULIN ASPART (*BKC) 100 UNITS/ML SUB-Q (12:01)
[2020-11-24 14:00] VITALS: BP 112/55; PULSE 64; RESP 16; TEMP 35.8; O2SAT 100
[2020-11-24 17:09] LABS: Glucose Point of Care 135 (65-105)
[2020-11-24 20:15] LABS: Glucose Point of Care 237 (65-105)
[2020-11-24 20:18] VITALS: PULSE 64
[2020-11-24] MEDS: INSULIN GLARGINE (*BKC) 100 UNITS/ML 10 UNITS SUB-Q (20:18)
[2020-11-24] MEDS: ATORVASTATIN 40 MG TABLET PO (20:18)
[2020-11-24 22:00] VITALS: BP 139/45; PULSE 70; RESP 16; TEMP 36.8; O2SAT 96
[2020-11-25 06:00] VITALS: BP 139/63; PULSE 63; RESP 16; TEMP 36.3; O2SAT 100
[2020-11-25 06:17] LABS: Glucose Point of Care 135 (65-105)
[2020-11-25 08:43] VITALS: PULSE 63
[2020-11-25] MEDS: carvediloL 6.25 MG TABLET PO ×2 (08:43→21:17)
[2020-11-25] MEDS: ASPIRIN 81 MG CHEWABLE TABLET PO (08:43)
[2020-11-25] MEDS: ENALAPRIL MALEATE 10 MG TABLET 20 MG PO (08:44)
[2020-11-25] MEDS: CLOPIDOGREL BISULFATE 75 MG TABLET PO (08:44)
[2020-11-25] MEDS: CITALOPRAM HYDROBROMIDE 20 MG TABLET PO (08:44)
[2020-11-25] MEDS: SENNA/DOCUSATE SODIUM TABLET 1 TAB PO (08:44)
[2020-11-25] MEDS: hydroCHLOROthiazide 25 MG TABLET PO (08:44)
[2020-11-25] MEDS: metFORMIN HCL 500 MG TABLET PO (08:44)
--- NOTE | 2020-11-25 10:54 | WPDNEURORHBP ---
Subjective Date/time seen: 11/25/20 10:54 Interval history: This is a 65-year-old male who has been on the rehab unit from a prior stroke. Patient is being admitted for further stroke rehabilitation following a small acute infarct to the left upper susan. 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 Patient was instructed on safety concerns. Patient was instructed to ask for help before getting out of bed and to be more cognizant of his surroundings and safety. Patient able to verbally tell examiner I need to slow down However, patient remains impulsive. Review of Systems Review of Systems: All systems reviewed & are unremarkable except as noted in HPI and below Functional Status Ambulation Ability Ability to Ambulate 10 Feet: Standby Assistance Ability to Ambulate 50 Feet With 2 Turns: Standby Assistance Ability to Ambulate 150 Feet: Standby Assistance Ambulation Assistive Devices: Walker, Wheeled Transfers Ability Ability to Transfer In/Out of Chair: Standby Assistance Exam Narrative: Exam Narrative: Head is normocephalic. Facial asymmetry is noted. Speech is dysarthric. Heart rate and rhythm is regular. Lungs are clear to auscultation. Abdomen is soft nontender. Musculoskeletal exam reveals good strength bilaterally. Patient does demonstrate impulsivity. Patient also demonstrates balance deficits and motor coordination deficits. Transfers at SBA/Gait is CGA. Impulsivity affects safety. Biggest barrier is motor apraxia and impulsivity Objective Data Vital Signs Vital Signs: Vital Signs - 24 hr 11/24/20 14:00 11/24/20 20:18 11/24/20 22:00 Temperature 35.8 C L 36.8 C Pulse Rate 64 64 70 Respiratory Rate 16 16 Blood Pressure 112/55 L 139/45 L Pulse Oximetry 100 96 11/25/20 06:00 11/25/20 08:43 Temperature 36.3 C L Pulse Rate 63 63 Respiratory Rate 16 Blood Pressure 139/63 Pulse Oximetry 100 Intake/Output Intake/Output: Intake & Output 11/22/20 11/23/20 11/24/20 11/25/20 23:59 23:59 23:59 23:59 Intake Total 855 246 9510 Balance 886 254 5563 Meds/Results Medications: Active Medications Generic Name Dose Route Start Last Admin Trade Name Freq PRN Reason Stop Dose Admin Acetaminophen 650 mg 11/20/20 15:39 Acetaminophen 325 Mg Tablet PO Q4H PRN Mild Pain (1-3) Aspirin 81 mg 11/21/20 09:00 11/25/20 08:43 Aspirin 81 Mg Chewable Tablet PO 12/21/20 09:01 81 mg DAILY ASA Administration Atorvastatin Calcium 40 mg 11/20/20 21:00 11/24/20 20:18 Atorvastatin 40 Mg Tablet PO 40 mg HS ASA Administration Carvedilol 6.25 mg 11/20/20 21:00 11/25/20 08:43 Carvedilol 6.25 Mg Tablet PO 6.25 mg Q12HR ASA Administration Citalopram Hydrobromide 20 mg 11/21/20 09:00 11/25/20 08:44 Citalopram Hydrobromide 20 Mg Tablet PO 20 mg QAM ASA Administration Clopidogrel Bisulfate 75 mg 11/21/20 09:00 11/25/20 08:44 Clopidogrel Bisulfate 75 Mg Tablet PO 75 mg DAILY ASA Administration Dextrose 12.5 gm 11/21/20 11:49 Dextrose 50% 25 Gm/50 Ml Syringe IV PUSH PRN PRN Hypoglycemia Protocol Enalapril Maleate 20 mg 11/21/20 09:00 11/25/20 08:44 Enalapril Maleate 10 Mg Tablet PO 20 mg DAILY ASA Administration Glucagon 1 mg 11/21/20 11:49 Glucagon For Inj 1 Mg Vial IM PRN PRN Hypoglycemia Protocol Glucose 15 gm 11/21/20 11:49 Glucose Oral Gel 15 Gm Of Glucse In 37.5 Gm Tube PO PRN PRN Hypoglycemia Protocol Hydrochlorothiazide 25 mg 11/21/20 09:00 11/25/20 08:44 Hydrochlorothiazide 25 Mg Tablet PO 25 mg DAILY ASA Administration Dextrose 1,000 mls @ 100 mls/hr 11/21/20 11:49 Dextrose 5% 1,000 Ml IVPB PRN PRN Hypoglycemia Protocol Insulin Aspart 3 - 6 units 11/21/20 12:00 11/25/20 08:42 Insulin Aspart (*Bkc) 100 Units/Ml SUB-Q Not Given
[2020-11-25 11:48] LABS: Glucose Point of Care 169 (65-105)
[2020-11-25 14:00] VITALS: BP 116/58; PULSE 72; RESP 18; TEMP 36.3; O2SAT 100
[2020-11-25 17:16] LABS: Glucose Point of Care 137 (65-105)
--- NOTE | 2020-11-25 17:21 | PCPTNOTE ---
Raza Radford was evaluated for a 2 wheeled walker on 11/25/2020 by this physical therapist. The 2 wheeled walker will resolve patient's mobility limitations and will be used for ADL's within the home. The patient can safely use the 2 wheeled walker. ?The 2 wheeled walker will resolve the patient?s mobility deficits, including decreased balance, incoordination, and LE weakness.
[2020-11-25 20:00] VITALS: PULSE 68; RESP 18; O2SAT 100
[2020-11-25 21:09] LABS: Glucose Point of Care 278 (65-105)
[2020-11-25 21:17] VITALS: PULSE 82
[2020-11-25] MEDS: ATORVASTATIN 40 MG TABLET PO (21:18)
[2020-11-25] MEDS: INSULIN GLARGINE (*BKC) 100 UNITS/ML 10 UNITS SUB-Q (21:19)
[2020-11-25 22:00] VITALS: BP 133/81; PULSE 68; RESP 18; TEMP 36.3; O2SAT 100
[2020-11-26 06:00] VITALS: BP 125/68; PULSE 67; RESP 16; TEMP 36; O2SAT 100
[2020-11-26 06:00] LABS: Glucose Point of Care 134 (65-105)
[2020-11-26 09:15] VITALS: PULSE 67
[2020-11-26] MEDS: CLOPIDOGREL BISULFATE 75 MG TABLET PO (09:15)
[2020-11-26] MEDS: SENNA/DOCUSATE SODIUM TABLET 1 TAB PO (09:15)
[2020-11-26] MEDS: carvediloL 6.25 MG TABLET PO ×2 (09:15→20:20)
[2020-11-26] MEDS: metFORMIN HCL 500 MG TABLET PO (09:15)
[2020-11-26] MEDS: hydroCHLOROthiazide 25 MG TABLET PO (09:15)
[2020-11-26] MEDS: ASPIRIN 81 MG CHEWABLE TABLET PO (09:15)
[2020-11-26] MEDS: CITALOPRAM HYDROBROMIDE 20 MG TABLET PO (09:15)
[2020-11-26] MEDS: ENALAPRIL MALEATE 10 MG TABLET 20 MG PO (09:16)
--- NOTE | 2020-11-26 11:37 | WPDNEURORHBP ---
Subjective Date/time seen: 11/26/20 11:37 Interval history: This is a 65-year-old male who has been on the rehab unit from a prior stroke. Patient is being admitted for further stroke rehabilitation following a small acute infarct to the left upper susan. 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 . Patient voices no complaints. Patient is seen during physical therapy and floor transfer training. Review of Systems Review of Systems: All systems reviewed & are unremarkable except as noted in HPI and below Functional Status Ambulation Ability Ability to Ambulate 10 Feet: Standby Assistance Ability to Ambulate 50 Feet With 2 Turns: Standby Assistance Ability to Ambulate 150 Feet: Standby Assistance Ambulation Assistive Devices: Walker, Wheeled Transfers Ability Ability to Transfer In/Out of Chair: Standby Assistance Exam Narrative: Exam Narrative: Head is normocephalic. Facial asymmetry is noted. Speech is dysarthric. Heart rate and rhythm is regular. Lungs are clear to auscultation. Abdomen is soft nontender. Musculoskeletal exam reveals weakness to the L quads from previous L TKR. Right hemiplegia persists. Patient does demonstrate impulsivity. Patient also demonstrates balance deficits and motor coordination deficits. Patient is independent with bed mobility. Patient is at standby to supervision with transfers. Patient is able to ambulate 400 ft with out a heel strike. Patient demonstrates left hip weakness. Patient is able to go up bilateral hand rails 12 steps with standby assistance. Hygiene and feeding are at standby assistance. Dressing and bathing of the lower extremity is at contact guard. Cognition continues to demonstrate impulsivity lack of insight. Objective Data Vital Signs Vital Signs: Vital Signs - 24 hr 11/25/20 14:00 11/25/20 20:00 11/25/20 21:17 Temperature 36.3 C L Pulse Rate 72 68 82 Respiratory Rate 18 18 Blood Pressure 116/58 L Pulse Oximetry 100 100 11/25/20 22:00 11/26/20 06:00 11/26/20 09:15 Temperature 36.3 C L 36.0 C L Pulse Rate 68 67 67 Respiratory Rate 18 16 Blood Pressure 133/81 125/68 Pulse Oximetry 100 100 Intake/Output Intake/Output: Intake & Output 11/23/20 11/24/20 11/25/20 11/26/20 23:59 23:59 23:59 23:59 Intake Total 720 1080 720 480 Balance 720 1080 720 480 Meds/Results Medications: Active Medications Generic Name Dose Route Start Last Admin Trade Name Sangita PRN Reason Stop Dose Admin Acetaminophen 650 mg 11/20/20 15:39 Acetaminophen 325 Mg Tablet PO Q4H PRN Mild Pain (1-3) Aspirin 81 mg 11/21/20 09:00 11/26/20 09:15 Aspirin 81 Mg Chewable Tablet PO 12/21/20 09:01 81 mg DAILY ASA Administration Atorvastatin Calcium 40 mg 11/20/20 21:00 11/25/20 21:18 Atorvastatin 40 Mg Tablet PO 40 mg HS ASA Administration Carvedilol 6.25 mg 11/20/20 21:00 11/26/20 09:15 Carvedilol 6.25 Mg Tablet PO 6.25 mg Q12HR ASA Administration Citalopram Hydrobromide 20 mg 11/21/20 09:00 11/26/20 09:15 Citalopram Hydrobromide 20 Mg Tablet PO 20 mg QAM ASA Administration Clopidogrel Bisulfate 75 mg 11/21/20 09:00 11/26/20 09:15 Clopidogrel Bisulfate 75 Mg Tablet PO 75 mg DAILY ASA Administration Dextrose 12.5 gm 11/21/20 11:49 Dextrose 50% 25 Gm/50 Ml Syringe IV PUSH PRN PRN Hypoglycemia Protocol Enalapril Maleate 20 mg 11/21/20 09:00 11/26/20 09:16 Enalapril Maleate 10 Mg Tablet PO 20 mg DAILY ASA Administration Glucagon 1 mg 11/21/20 11:49 Glucagon For Inj 1 Mg Vial IM PRN PRN Hypoglycemia Protocol Glucose 15 gm 11/21/20 11:49 Glucose Oral Gel 15 Gm Of Glucse In 37.5 Gm Tube PO PRN PRN Hypoglycemia Protocol Hydrochlorothiazide 25 mg 11/21/20 09:00 11/26/20 09:15 Hydrochlorothiazide 25 Mg Tablet PO 25 mg DA
[2020-11-26 12:03] LABS: Glucose Point of Care 216 (65-105)
[2020-11-26] MEDS: INSULIN ASPART (*BKC) 100 UNITS/ML SUB-Q (12:17)
--- NOTE | 2020-11-26 12:30 | PCNFU ---
Nutrition Follow-Up Complete: Decreased fat/cholesterol needs related to cardiovascular disease as evidenced by CVA. Goal: Patient to consume 75% of meals or greater. Patient is meeting goal. No new goal at this time. Pt current nutrition is diabetic consistent carbohydrate diet. Last recorded weight is 79.8 kg. Recommend re-weighing patient. Bowel Motility: + BM 11/25 Labs Reviewed: POC capillary glucose 134 Meds Noted: Lipitor, Coreg, Celexa, Plavix, Vasotec, Novolog, Lantus, Glucophage, Hydrochlorothiazide, Miralax, Senna Additional Notes: Spoke with patient. Patient reported having great appetite consuming 100% of all meals and enjoying the food. No nutritional questions or concerns at this time. Follow up every 7 days.
--- NOTE | 2020-11-26 13:10 | PCNSR ---
On 11/26/20, the student, Nat Zuniga, provided care and completed [facility] documentation on this patient. I have reviewed the student's documentation and agree with the findings.
[2020-11-26 14:00] VITALS: BP 118/53; PULSE 68; RESP 16; TEMP 36.4; O2SAT 100
[2020-11-26 16:53] LABS: Glucose Point of Care 98 (65-105)
[2020-11-26 20:00] VITALS: PULSE 69; RESP 18; O2SAT 98
[2020-11-26] MEDS: ATORVASTATIN 40 MG TABLET PO (20:19)
[2020-11-26 20:20] VITALS: PULSE 64
[2020-11-26] MEDS: INSULIN GLARGINE (*BKC) 100 UNITS/ML 10 UNITS SUB-Q (20:20)
[2020-11-26 21:59] VITALS: BP 142/73; PULSE 69; RESP 18; TEMP 36.4; O2SAT 98
[2020-11-26 22:03] LABS: Glucose Point of Care 208 (65-105)
[2020-11-27 06:00] VITALS: BP 136/68; PULSE 55; RESP 16; TEMP 35.6; O2SAT 100
[2020-11-27 06:58] LABS: Glucose Point of Care 119 (65-105)
[2020-11-27 08:33] VITALS: PULSE 68
[2020-11-27] MEDS: metFORMIN HCL 500 MG TABLET PO ×2 (08:33→17:47)
[2020-11-27] MEDS: carvediloL 6.25 MG TABLET PO ×2 (08:33→21:51)
[2020-11-27] MEDS: ASPIRIN 81 MG CHEWABLE TABLET PO (08:33)
[2020-11-27] MEDS: SENNA/DOCUSATE SODIUM TABLET 1 TAB PO (08:34)
[2020-11-27] MEDS: CLOPIDOGREL BISULFATE 75 MG TABLET PO (08:34)
[2020-11-27] MEDS: CITALOPRAM HYDROBROMIDE 20 MG TABLET PO (08:34)
[2020-11-27] MEDS: ENALAPRIL MALEATE 10 MG TABLET 20 MG PO (08:35)
[2020-11-27] MEDS: hydroCHLOROthiazide 25 MG TABLET PO (08:35)
--- NOTE | 2020-11-27 09:02 | WPDNEURORHBP ---
Subjective Date/time seen: 11/27/20 09:02 Interval history: This is a 65-year-old male who has been on the rehab unit from a prior stroke. Patient is being admitted for further stroke rehabilitation following a small acute infarct to the left upper susan. 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 Patient voices no complaints. Patient is seen while in bed. Review of Systems Review of Systems: All systems reviewed & are unremarkable except as noted in HPI and below Functional Status Ambulation Ability Ability to Ambulate 10 Feet: Standby Assistance Ability to Ambulate 50 Feet With 2 Turns: Contact Guard Ability to Ambulate 150 Feet: Contact Guard Ambulation Assistive Devices: Walker, Wheeled Transfers Ability Ability to Transfer In/Out of Chair: Contact Guard Exam Narrative: Exam Narrative: Head is normocephalic. Facial asymmetry is noted. Speech is dysarthric. Heart rate and rhythm is regular. Lungs are clear to auscultation. Abdomen is soft nontender. Musculoskeletal exam reveals weakness to the L quads from previous L TKR. Right hemiplegia persists. Patient does demonstrate impulsivity. Patient also demonstrates balance deficits and motor coordination deficits. Patient is independent with bed mobility. Patient is at standby to supervision with transfers. Patient is able to ambulate 400 ft with out a heel strike. Patient demonstrates left hip weakness. Patient is able to go up bilateral hand rails 12 steps with standby assistance. Hygiene and feeding are at standby assistance. Dressing and bathing of the lower extremity is at contact guard. Cognition continues to demonstrate impulsivity lack of insight. Patient with difficulty with medication mgmt. Objective Data Vital Signs Vital Signs: Vital Signs - 24 hr 11/26/20 09:15 11/26/20 14:00 11/26/20 20:00 Temperature 36.4 C L Pulse Rate 67 68 69 Respiratory Rate 16 18 Blood Pressure 118/53 L Pulse Oximetry 100 98 11/26/20 20:20 11/26/20 21:59 11/27/20 06:00 Temperature 36.4 C 35.6 C L Pulse Rate 64 69 55 L Respiratory Rate 18 16 Blood Pressure 142/73 H 136/68 Pulse Oximetry 98 100 11/27/20 08:33 Temperature Pulse Rate 68 Respiratory Rate Blood Pressure Pulse Oximetry Intake/Output Intake/Output: Intake & Output 11/24/20 11/25/20 11/26/20 03/24/21 23:59 23:59 23:59 23:59 Intake Total 1743 407 5575 360 Balance 0632 434 9093 360 Meds/Results Medications: Active Medications Generic Name Dose Route Start Last Admin Trade Name Freq PRN Reason Stop Dose Admin Acetaminophen 650 mg 11/20/20 15:39 Acetaminophen 325 Mg Tablet PO Q4H PRN Mild Pain (1-3) Aspirin 81 mg 11/21/20 09:00 11/27/20 08:33 Aspirin 81 Mg Chewable Tablet PO 12/21/20 09:01 81 mg DAILY ASA Administration Atorvastatin Calcium 40 mg 11/20/20 21:00 11/26/20 20:19 Atorvastatin 40 Mg Tablet PO 40 mg HS ASA Administration Carvedilol 6.25 mg 11/20/20 21:00 11/27/20 08:33 Carvedilol 6.25 Mg Tablet PO 6.25 mg Q12HR ASA Administration Citalopram Hydrobromide 20 mg 11/21/20 09:00 11/27/20 08:34 Citalopram Hydrobromide 20 Mg Tablet PO 20 mg QAM ASA Administration Clopidogrel Bisulfate 75 mg 11/21/20 09:00 11/27/20 08:34 Clopidogrel Bisulfate 75 Mg Tablet PO 75 mg DAILY ASA Administration Dextrose 12.5 gm 11/21/20 11:49 Dextrose 50% 25 Gm/50 Ml Syringe IV PUSH PRN PRN Hypoglycemia Protocol Enalapril Maleate 20 mg 11/21/20 09:00 11/27/20 08:35 Enalapril Maleate 10 Mg Tablet PO 20 mg DAILY ASA Administration Glucagon 1 mg 11/21/20 11:49 Glucagon For Inj 1 Mg Vial IM PRN PRN Hypoglycemia Protocol Glucose 15 gm 11/21/20 11:49 Glucose Oral Gel 15 Gm Of Glucse In 37.5 Gm Tube PO PRN PRN Hypoglycemia Protocol Hydrochlorothi
[2020-11-27 11:55] LABS: Glucose Point of Care 154 (65-105)
[2020-11-27 14:00] VITALS: BP 117/57; PULSE 65; RESP 18; TEMP 35.9; O2SAT 98
[2020-11-27 18:13] LABS: Glucose Point of Care 132 (65-105)
[2020-11-27 19:10] VITALS: PULSE 73; RESP 16; O2SAT 99
[2020-11-27 21:50] VITALS: BP 136/51; PULSE 73; RESP 16; TEMP 36.6; O2SAT 99
[2020-11-27 21:51] VITALS: PULSE 73
[2020-11-27] MEDS: ATORVASTATIN 40 MG TABLET PO (21:52)
[2020-11-27] MEDS: INSULIN GLARGINE (*BKC) 100 UNITS/ML 10 UNITS SUB-Q (21:52)
[2020-11-27 22:10] LABS: Glucose Point of Care 187 (65-105)
[2020-11-28 05:13] LABS: Basophils Absolute Auto 0.1 K/mm3 (0.0-0.1); Eosinophils Absolute Auto 0.1 K/mm3 (0-0.3); Eosinophils Percent Auto 1.5 % (0-4.4); Hemoglobin 10.7 g/dL (14.0-18.0); Immature Granulocyte Absolute 0.01 K/mm3 (0.00-0.031); Immature Granulocyte Percent A 0.2 % (0-0.5); Lymphocytes Absolute Auto 2.06 K/mm3 (0.9-3.2); Lymphocytes Percent Auto 35.1 % (18.3-44.2); Mean Corpuscular HGB Conc 30.6 g/dl (32-36); Mean Corpuscular Hemoglobin 21.2 pg (26-34); Mean Corpuscular Volume 69.4 fl (80-100); Mean Platelet Volume 9.8 fl (7.4-10.4); Monocytes Absolute Auto 0.5 K/mm3 (0.1-0.6); Monocytes Percent Auto 9.2 % (2.6-8.5); Neutrophils Absolute Auto 3.1 K/mm3 (1.3-6.7); Platelet Count Result 261 k/mm3 (150-375); Red Blood Count 5.04 M/mm3 (4.6-6.20); Red Cell Distribution Width 15.9 % (11.5-14.5); White Blood Count 5.9 K/mm3 (4.5-10.0)
[2020-11-28 05:27] LABS: Anion Gap 5 mmol/L (8-16); Blood Urea Nitrogen 26 mg/dL (9-20); Calcium 9.2 mg/dL (8.4-10.2); Carbon Dioxide 28 mmol/L (22-30); Chloride 107 mmol/L (98-107); Estimated CRCL calculation 40 ml/min; Estimated Glomerular Filt Rate 53; Glucose 108 mg/dL (75-110); Potassium 4.6 mmol/L (3.4-5.0); Sodium 140 mmol/L (137-145)
[2020-11-28 05:46] VITALS: BP 122/61; PULSE 58; RESP 16; TEMP 36; O2SAT 99
[2020-11-28 06:33] LABS: Glucose Point of Care 105 (65-105)
[2020-11-28] MEDS: SENNA/DOCUSATE SODIUM TABLET 1 TAB PO (08:45)
[2020-11-28 08:46] VITALS: PULSE 58
[2020-11-28] MEDS: metFORMIN HCL 500 MG TABLET PO ×2 (08:46→17:16)
[2020-11-28] MEDS: hydroCHLOROthiazide 25 MG TABLET PO (08:46)
[2020-11-28] MEDS: carvediloL 6.25 MG TABLET PO ×2 (08:46→20:17)
[2020-11-28] MEDS: ASPIRIN 81 MG CHEWABLE TABLET PO (08:46)
[2020-11-28] MEDS: ENALAPRIL MALEATE 10 MG TABLET 20 MG PO (08:46)
[2020-11-28] MEDS: CITALOPRAM HYDROBROMIDE 20 MG TABLET PO (08:46)
[2020-11-28] MEDS: CLOPIDOGREL BISULFATE 75 MG TABLET PO (08:46)
[2020-11-28 11:43] LABS: Glucose Point of Care 153 (65-105)
--- NOTE | 2020-11-28 12:45 | PCNSR ---
On 11/28/20, the student, Nat Zuniga, provided care and completed [facility] documentation on this patient. I have reviewed the student's documentation and agree with the findings.
[2020-11-28 14:00] VITALS: BP 110/77; PULSE 71; RESP 20; TEMP 36.1; O2SAT 100
--- NOTE | 2020-11-28 14:37 | WPDNEURORHBP ---
Subjective Date/time seen: 11/28/20 14:37 Interval history: This is a 65-year-old male who has been on the rehab unit from a prior stroke. Patient is being admitted for further stroke rehabilitation following a small acute infarct to the left upper susan. 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 Patient voices no complaints. Patient is seen while up in wheelchair and numerous times throughout the day. Patient needs reminders to slow down. Review of Systems Review of Systems: All systems reviewed & are unremarkable except as noted in HPI and below Functional Status Ambulation Ability Ability to Ambulate 10 Feet: Standby Assistance Ability to Ambulate 50 Feet With 2 Turns: Standby Assistance Ability to Ambulate 150 Feet: Standby Assistance Ambulation Assistive Devices: Walker, Wheeled Transfers Ability Ability to Transfer In/Out of Chair: Contact Guard Exam Narrative: Exam Narrative: Head is normocephalic. Facial asymmetry is noted. Speech is dysarthric. Heart rate and rhythm is regular. Lungs are clear to auscultation. Abdomen is soft nontender. Musculoskeletal exam reveals weakness to the L quads from previous L TKR. Right hemiplegia persists. Patient does demonstrate impulsivity. Patient also demonstrates balance deficits and motor coordination deficits. Patient is independent with bed mobility. Patient is at standby to supervision with transfers. Patient is able to ambulate 400 ft with out a heel strike. Patient demonstrates left hip weakness. Patient is able to go up bilateral hand rails 12 steps with standby assistance. Hygiene and feeding are at standby assistance. Dressing and bathing of the lower extremity is at contact guard. Cognition continues to demonstrate impulsivity lack of insight. Patient with difficulty with medication mgmt. Objective Data Vital Signs Vital Signs: Vital Signs - 24 hr 11/27/20 19:10 11/27/20 21:50 11/27/20 21:51 Temperature 36.6 C Pulse Rate 73 73 73 Respiratory Rate 16 16 Blood Pressure 136/51 L Pulse Oximetry 99 99 11/28/20 05:46 11/28/20 08:46 Temperature 36.0 C L Pulse Rate 58 L 58 L Respiratory Rate 16 Blood Pressure 122/61 Pulse Oximetry 99 Intake/Output Intake/Output: Intake & Output 11/25/20 11/26/20 11/27/20 11/28/20 23:59 23:59 23:59 23:59 Intake Total 720 1080 840 480 Balance 720 1080 840 480 Meds/Results Medications: Active Medications Generic Name Dose Route Start Last Admin Trade Name Sangita PRN Reason Stop Dose Admin Acetaminophen 650 mg 11/20/20 15:39 Acetaminophen 325 Mg Tablet PO Q4H PRN Mild Pain (1-3) Aspirin 81 mg 11/21/20 09:00 11/28/20 08:46 Aspirin 81 Mg Chewable Tablet PO 12/21/20 09:01 81 mg DAILY ASA Administration Atorvastatin Calcium 40 mg 11/20/20 21:00 11/27/20 21:52 Atorvastatin 40 Mg Tablet PO 40 mg HS ASA Administration Carvedilol 6.25 mg 11/20/20 21:00 11/28/20 08:46 Carvedilol 6.25 Mg Tablet PO 6.25 mg Q12HR ASA Administration Citalopram Hydrobromide 20 mg 11/21/20 09:00 11/28/20 08:46 Citalopram Hydrobromide 20 Mg Tablet PO 20 mg QAM ASA Administration Clopidogrel Bisulfate 75 mg 11/21/20 09:00 11/28/20 08:46 Clopidogrel Bisulfate 75 Mg Tablet PO 75 mg DAILY ASA Administration Dextrose 12.5 gm 11/21/20 11:49 Dextrose 50% 25 Gm/50 Ml Syringe IV PUSH PRN PRN Hypoglycemia Protocol Enalapril Maleate 20 mg 11/21/20 09:00 11/28/20 08:46 Enalapril Maleate 10 Mg Tablet PO 20 mg DAILY ASA Administration Glucagon 1 mg 11/21/20 11:49 Glucagon For Inj 1 Mg Vial IM PRN PRN Hypoglycemia Protocol Glucose 15 gm 11/21/20 11:49 Glucose Oral Gel 15 Gm Of Glucse In 37.5 Gm Tube PO PRN PRN Hypoglycemia Protocol Hydrochlorothiazide 25 mg 11/21/20 09:00 11/28/20 08:46 H
[2020-11-28 17:02] LABS: Glucose Point of Care 155 (65-105)
[2020-11-28 20:00] VITALS: PULSE 60; RESP 20; O2SAT 100
[2020-11-28 20:17] VITALS: PULSE 60
[2020-11-28] MEDS: ATORVASTATIN 40 MG TABLET PO (20:17)
[2020-11-28 20:25] LABS: Glucose Point of Care 176 (65-105)
[2020-11-28] MEDS: INSULIN GLARGINE (*BKC) 100 UNITS/ML 10 UNITS SUB-Q (20:27)
[2020-11-28 21:24] VITALS: BP 142/64; PULSE 60; RESP 16; TEMP 36.1; O2SAT 98
[2020-11-29 05:11] VITALS: BP 123/59; PULSE 62; RESP 16; TEMP 35.7; O2SAT 97
[2020-11-29 07:13] LABS: Glucose Point of Care 84 (65-105)
[2020-11-29 09:28] VITALS: PULSE 62
[2020-11-29] MEDS: carvediloL 6.25 MG TABLET PO ×2 (09:28→20:53)
[2020-11-29] MEDS: metFORMIN HCL 500 MG TABLET PO ×2 (09:28→18:05)
[2020-11-29] MEDS: CITALOPRAM HYDROBROMIDE 20 MG TABLET PO (09:28)
[2020-11-29] MEDS: SENNA/DOCUSATE SODIUM TABLET 1 TAB PO (09:28)
[2020-11-29] MEDS: hydroCHLOROthiazide 25 MG TABLET PO (09:28)
[2020-11-29] MEDS: ASPIRIN 81 MG CHEWABLE TABLET PO (09:28)
[2020-11-29] MEDS: CLOPIDOGREL BISULFATE 75 MG TABLET PO (09:28)
[2020-11-29] MEDS: ENALAPRIL MALEATE 10 MG TABLET 20 MG PO (09:29)
[2020-11-29 11:06] LABS: Glucose Point of Care 104 (65-105)
--- NOTE | 2020-11-29 13:23 | WPDNEURORHBP ---
Subjective Date/time seen: 11/29/20 13:23 Interval history: This is a 65-year-old male who has been on the rehab unit from a prior stroke. Patient is being admitted for further stroke rehabilitation following a small acute infarct to the left upper susan. 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 Patient voices no complaints. Patient is seen while up in wheelchair and numerous times throughout the day. Patient needs reminders to slow down. Patient is demonstrating more safety awareness. Review of Systems Review of Systems: All systems reviewed & are unremarkable except as noted in HPI and below Functional Status Ambulation Ability Ability to Ambulate 10 Feet: Standby Assistance Ability to Ambulate 50 Feet With 2 Turns: Standby Assistance Ability to Ambulate 150 Feet: Standby Assistance Ambulation Assistive Devices: Walker, Wheeled Transfers Ability Ability to Transfer In/Out of Chair: Independent Exam Narrative: Exam Narrative: Head is normocephalic. Facial asymmetry is noted. Speech is dysarthric. Heart rate and rhythm is regular. Lungs are clear to auscultation. Abdomen is soft nontender. Musculoskeletal exam reveals weakness to the L quads from previous L TKR. Right hemiplegia persists. Patient does demonstrate impulsivity. Patient also demonstrates balance deficits and motor coordination deficits. Patient is independent with bed mobility. Patient is at standby to supervision with transfers. Patient is able to ambulate 400 ft with out a heel strike. Patient demonstrates left hip weakness. Patient is able to go up bilateral hand rails 12 steps with standby assistance. Hygiene and feeding are at standby assistance. Dressing and bathing of the lower extremity is at contact guard. Cognition continues to demonstrate impulsivity lack of insight. Patient with difficulty with medication mgmt. Objective Data Vital Signs Vital Signs: Vital Signs - 24 hr 11/28/20 14:00 11/28/20 20:00 11/28/20 20:17 Temperature 36.1 C L Pulse Rate 71 60 60 Respiratory Rate 20 20 Blood Pressure 110/77 Pulse Oximetry 100 100 11/28/20 21:24 11/29/20 05:11 11/29/20 09:28 Temperature 36.1 C L 35.7 C L Pulse Rate 60 62 62 Respiratory Rate 16 16 Blood Pressure 142/64 H 123/59 L Pulse Oximetry 98 97 Intake/Output Intake/Output: Intake & Output 03/11/27/20 11/28/20 11/29/20 23:59 23:59 23:59 23:59 Intake Total 1884 840 720 720 Balance 9591 840 720 720 Meds/Results Medications: Active Medications Generic Name Dose Route Start Last Admin Trade Name Freq PRN Reason Stop Dose Admin Acetaminophen 650 mg 11/20/20 15:39 Acetaminophen 325 Mg Tablet PO Q4H PRN Mild Pain (1-3) Aspirin 81 mg 11/21/20 09:00 11/29/20 09:28 Aspirin 81 Mg Chewable Tablet PO 12/21/20 09:01 81 mg DAILY ASA Administration Atorvastatin Calcium 40 mg 11/20/20 21:00 11/28/20 20:17 Atorvastatin 40 Mg Tablet PO 40 mg HS ASA Administration Carvedilol 6.25 mg 11/20/20 21:00 11/29/20 09:28 Carvedilol 6.25 Mg Tablet PO 6.25 mg Q12HR ASA Administration Citalopram Hydrobromide 20 mg 11/21/20 09:00 11/29/20 09:28 Citalopram Hydrobromide 20 Mg Tablet PO 20 mg QAM ASA Administration Clopidogrel Bisulfate 75 mg 11/21/20 09:00 11/29/20 09:28 Clopidogrel Bisulfate 75 Mg Tablet PO 75 mg DAILY ASA Administration Dextrose 12.5 gm 11/21/20 11:49 Dextrose 50% 25 Gm/50 Ml Syringe IV PUSH PRN PRN Hypoglycemia Protocol Enalapril Maleate 20 mg 11/21/20 09:00 11/29/20 09:29 Enalapril Maleate 10 Mg Tablet PO 20 mg DAILY ASA Administration Glucagon 1 mg 11/21/20 11:49 Glucagon For Inj 1 Mg Vial IM PRN PRN Hypoglycemia Protocol Glucose 15 gm 11/21/20 11:49 Glucose Oral Gel 15 Gm Of Glucse In 37.5 Gm Tube PO PRN PRN Hypo
--- NOTE | 2020-11-29 15:07 | PCCDE ---
Consult received for diabetes education. 1430 pt with another staff member 1445 pt not in room Will f/up next week
[2020-11-29 16:44] LABS: Glucose Point of Care 116 (65-105)
[2020-11-29 20:53] VITALS: PULSE 72
[2020-11-29] MEDS: ATORVASTATIN 40 MG TABLET PO (20:53)
[2020-11-29 22:00] VITALS: BP 140/58; PULSE 63; RESP 16; TEMP 36.3; O2SAT 99
[2020-11-29 22:07] LABS: Glucose Point of Care 166 (65-105)
[2020-11-30 05:19] VITALS: BP 121/59; PULSE 56; RESP 16; TEMP 36.1; O2SAT 97
[2020-11-30 06:24] LABS: Glucose Point of Care 98 (65-105)
[2020-11-30] MEDS: SENNA/DOCUSATE SODIUM TABLET 1 TAB PO (09:33)
[2020-11-30] MEDS: ENALAPRIL MALEATE 10 MG TABLET 20 MG PO (09:33)
[2020-11-30 09:34] VITALS: PULSE 68
[2020-11-30] MEDS: metFORMIN HCL 500 MG TABLET PO ×2 (09:34→16:51)
[2020-11-30] MEDS: carvediloL 6.25 MG TABLET PO ×2 (09:34→20:59)
[2020-11-30] MEDS: ASPIRIN 81 MG CHEWABLE TABLET PO (09:34)
[2020-11-30] MEDS: CITALOPRAM HYDROBROMIDE 20 MG TABLET PO (09:37)
[2020-11-30] MEDS: hydroCHLOROthiazide 25 MG TABLET PO (09:37)
[2020-11-30] MEDS: CLOPIDOGREL BISULFATE 75 MG TABLET PO (09:37)
--- NOTE | 2020-11-30 10:04 | WPDNEURORHBP ---
Subjective Date/time seen: 11/30/20 10:04 Interval history: This is a 65-year-old male who has been on the rehab unit from a prior stroke. Patient is being admitted for further stroke rehabilitation following a small acute infarct to the left upper susan. 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 Patient voices no complaints. Patient is seen during breakfast. Patient needs reminders to slow down. Patient is demonstrating more safety awareness. Patient looking forward to going home. Review of Systems Review of Systems: All systems reviewed & are unremarkable except as noted in HPI and below Functional Status Ambulation Ability Ability to Ambulate 10 Feet: Standby Assistance Ability to Ambulate 50 Feet With 2 Turns: Standby Assistance Ability to Ambulate 150 Feet: Standby Assistance Ambulation Assistive Devices: Walker, Wheeled Transfers Ability Ability to Transfer In/Out of Chair: Independent Exam Narrative: Exam Narrative: Head is normocephalic. Facial asymmetry is noted. Speech is dysarthric. Heart rate and rhythm is regular. Lungs are clear to auscultation. Abdomen is soft nontender. Musculoskeletal exam reveals weakness to the L quads from previous L TKR. Right hemiplegia persists. Patient does demonstrate impulsivity. Patient also demonstrates balance deficits and motor coordination deficits. Patient is independent with bed mobility. Patient is at standby to supervision with transfers. Patient is able to ambulate 400 ft with out a heel strike. Patient demonstrates left hip weakness. Patient is able to go up bilateral hand rails 12 steps with standby assistance. Hygiene and feeding are at standby assistance. Dressing and bathing of the lower extremity is at contact guard. Cognition continues to demonstrate impulsivity lack of insight. Patient with difficulty with medication mgmt. Objective Data Vital Signs Vital Signs: Vital Signs - 24 hr 11/29/20 20:53 11/29/20 22:00 11/30/20 05:19 Temperature 36.3 C L 36.1 C L Pulse Rate 72 63 56 L Respiratory Rate 16 16 Blood Pressure 140/58 L 121/59 L Pulse Oximetry 99 97 11/30/20 09:34 Temperature Pulse Rate 68 Respiratory Rate Blood Pressure Pulse Oximetry Intake/Output Intake/Output: Intake & Output 11/27/20 11/28/20 11/29/20 11/30/20 23:59 23:59 23:59 23:59 Intake Total 840 720 960 240 Balance 840 720 960 240 Meds/Results Medications: Active Medications Generic Name Dose Route Start Last Admin Trade Name Freq PRN Reason Stop Dose Admin Acetaminophen 650 mg 11/20/20 15:39 Acetaminophen 325 Mg Tablet PO Q4H PRN Mild Pain (1-3) Aspirin 81 mg 11/21/20 09:00 11/30/20 09:34 Aspirin 81 Mg Chewable Tablet PO 12/21/20 09:01 81 mg DAILY ASA Administration Atorvastatin Calcium 40 mg 11/20/20 21:00 11/29/20 20:53 Atorvastatin 40 Mg Tablet PO 40 mg HS ASA Administration Carvedilol 6.25 mg 11/20/20 21:00 11/30/20 09:34 Carvedilol 6.25 Mg Tablet PO 6.25 mg Q12HR ASA Administration Citalopram Hydrobromide 20 mg 11/21/20 09:00 11/30/20 09:37 Citalopram Hydrobromide 20 Mg Tablet PO 20 mg QAM ASA Administration Clopidogrel Bisulfate 75 mg 11/21/20 09:00 11/30/20 09:37 Clopidogrel Bisulfate 75 Mg Tablet PO 75 mg DAILY ASA Administration Dextrose 12.5 gm 11/21/20 11:49 Dextrose 50% 25 Gm/50 Ml Syringe IV PUSH PRN PRN Hypoglycemia Protocol Enalapril Maleate 20 mg 11/21/20 09:00 11/30/20 09:33 Enalapril Maleate 10 Mg Tablet PO 20 mg DAILY ASA Administration Glucagon 1 mg 11/21/20 11:49 Glucagon For Inj 1 Mg Vial IM PRN PRN Hypoglycemia Protocol Glucose 15 gm 11/21/20 11:49 Glucose Oral Gel 15 Gm Of Glucse In 37.5 Gm Tube PO PRN PRN Hypoglycemia Protocol Hydrochlorothiazide 25 mg 11/21/20 09:00 11/30
[2020-11-30 11:45] LABS: Glucose Point of Care 131 (65-105)
[2020-11-30 14:00] VITALS: BP 120/72; PULSE 88; RESP 20; TEMP 35.9; O2SAT 95
[2020-11-30 16:51] LABS: Glucose Point of Care 128 (65-105)
[2020-11-30 20:52] VITALS: BP 125/63; PULSE 66; RESP 20; TEMP 36.3; O2SAT 99
[2020-11-30 20:59] VITALS: PULSE 66
[2020-11-30] MEDS: ATORVASTATIN 40 MG TABLET PO (20:59)
[2020-11-30 21:09] LABS: Glucose Point of Care 204 (65-105)
[2020-12-01] VITALS (8 sets, daily range): BP systolic 126–128; BP diastolic 60–85; PULSE 58–91; RESP 18–20; TEMP 35.9–36.7; O2SAT 97–100
[2020-12-01 08:13] LABS: Glucose Point of Care 122 (65-105)
--- NOTE | 2020-12-01 09:26 | WPDNEURORHBP ---
Subjective Date/time seen: 12/01/20 09:26 Interval history: This is a 65-year-old male who has been on the rehab unit from a prior stroke. Patient is being admitted for further stroke rehabilitation following a small acute infarct to the left upper susan. 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 Patient voices no complaints. Patient is seen during breakfast in the dining room. Patient needs reminders to slow down. ST has given instructions to put fork down between bites and to have an empty mouth before putting more food in mouth. Patient is demonstrating more safety awareness. Patient looking forward to going home. Review of Systems Review of Systems: All systems reviewed & are unremarkable except as noted in HPI and below Functional Status Ambulation Ability Ability to Ambulate 10 Feet: Independent Ability to Ambulate 50 Feet With 2 Turns: Standby Assistance Ability to Ambulate 150 Feet: Standby Assistance Ambulation Assistive Devices: Walker, Wheeled Transfers Ability Ability to Transfer In/Out of Chair: Independent Exam Narrative: Exam Narrative: Head is normocephalic. Facial asymmetry is noted. Speech is dysarthric. Heart rate and rhythm is regular. Lungs are clear to auscultation. Abdomen is soft nontender. Musculoskeletal exam reveals weakness to the L quads from previous L TKR. Right hemiplegia persists. Patient does demonstrate impulsivity. Patient also demonstrates balance deficits and motor coordination deficits. Gait Independent with 10 feet with FWW. Gait at 50 feet SBA Cognition continues to demonstrate impulsivity, and lack of insight. Patient with difficulty with medication mgmt. Objective Data Vital Signs Vital Signs: Vital Signs - 24 hr 11/30/20 09:34 11/30/20 14:00 11/30/20 20:52 Temperature 35.9 C L 36.3 C L Pulse Rate 68 88 66 Respiratory Rate 20 20 Blood Pressure 120/72 125/63 Pulse Oximetry 95 99 11/30/20 20:59 12/01/20 05:37 Temperature 36.2 C L Pulse Rate 66 58 L Respiratory Rate 18 Blood Pressure 127/60 Pulse Oximetry 100 Intake/Output Intake/Output: Intake & Output 11/28/20 11/29/20 11/30/20 12/01/20 23:59 23:59 23:59 23:59 Intake Total 720 960 720 240 Balance 720 960 720 240 Meds/Results Medications: Active Medications Generic Name Dose Route Start Last Admin Trade Name Sangita PRN Reason Stop Dose Admin Acetaminophen 650 mg 11/20/20 15:39 Acetaminophen 325 Mg Tablet PO Q4H PRN Mild Pain (1-3) Aspirin 81 mg 11/21/20 09:00 11/30/20 09:34 Aspirin 81 Mg Chewable Tablet PO 12/21/20 09:01 81 mg DAILY ASA Administration Atorvastatin Calcium 40 mg 11/20/20 21:00 11/30/20 20:59 Atorvastatin 40 Mg Tablet PO 40 mg HS ASA Administration Carvedilol 6.25 mg 11/20/20 21:00 11/30/20 20:59 Carvedilol 6.25 Mg Tablet PO 6.25 mg Q12HR ASA Administration Citalopram Hydrobromide 20 mg 11/21/20 09:00 11/30/20 09:37 Citalopram Hydrobromide 20 Mg Tablet PO 20 mg QAM ASA Administration Clopidogrel Bisulfate 75 mg 11/21/20 09:00 11/30/20 09:37 Clopidogrel Bisulfate 75 Mg Tablet PO 75 mg DAILY ASA Administration Dextrose 12.5 gm 11/21/20 11:49 Dextrose 50% 25 Gm/50 Ml Syringe IV PUSH PRN PRN Hypoglycemia Protocol Enalapril Maleate 20 mg 11/21/20 09:00 11/30/20 09:33 Enalapril Maleate 10 Mg Tablet PO 20 mg DAILY ASA Administration Glucagon 1 mg 11/21/20 11:49 Glucagon For Inj 1 Mg Vial IM PRN PRN Hypoglycemia Protocol Glucose 15 gm 11/21/20 11:49 Glucose Oral Gel 15 Gm Of Glucse In 37.5 Gm Tube PO PRN PRN Hypoglycemia Protocol Hydrochlorothiazide 25 mg 11/21/20 09:00 11/30/20 09:37 Hydrochlorothiazide 25 Mg Tablet PO 25 mg DAILY ASA Administration Dextrose 1,000 mls @ 100 mls/hr 11/21/20 11:49 Dextrose 5% 1,0
[2020-12-01] MEDS: metFORMIN HCL 500 MG TABLET PO ×2 (10:08→17:23)
[2020-12-01] MEDS: CLOPIDOGREL BISULFATE 75 MG TABLET PO (10:08)
[2020-12-01] MEDS: ASPIRIN 81 MG CHEWABLE TABLET PO (10:09)
[2020-12-01] MEDS: hydroCHLOROthiazide 25 MG TABLET PO (10:09)
[2020-12-01] MEDS: carvediloL 6.25 MG TABLET PO ×2 (10:09→21:27)
[2020-12-01] MEDS: CITALOPRAM HYDROBROMIDE 20 MG TABLET PO (10:09)
[2020-12-01] MEDS: ENALAPRIL MALEATE 10 MG TABLET 20 MG PO (10:09)
[2020-12-01] MEDS: ACETAMINOPHEN 325 MG TABLET 650 MG PO ×2 (10:11→21:32)
[2020-12-01] MEDS: SENNA/DOCUSATE SODIUM TABLET 1 TAB PO (10:12)
[2020-12-01 12:25] LABS: Glucose Point of Care 121 (65-105)
[2020-12-01 16:57] LABS: Glucose Point of Care 136 (65-105)
[2020-12-01] MEDS: ATORVASTATIN 40 MG TABLET PO (21:27)
[2020-12-01 21:38] LABS: Glucose Point of Care 177 (65-105)
[2020-12-02 05:12] VITALS: BP 120/57; PULSE 71; RESP 18; TEMP 36.3; O2SAT 100
[2020-12-02 06:45] LABS: Glucose Point of Care 106 (65-105)
[2020-12-02 09:24] VITALS: PULSE 71
[2020-12-02] MEDS: SENNA/DOCUSATE SODIUM TABLET 1 TAB PO (09:24)
[2020-12-02] MEDS: ENALAPRIL MALEATE 10 MG TABLET 20 MG PO (09:24)
[2020-12-02] MEDS: ASPIRIN 81 MG CHEWABLE TABLET PO (09:24)
[2020-12-02] MEDS: metFORMIN HCL 500 MG TABLET PO (09:24)
[2020-12-02] MEDS: hydroCHLOROthiazide 25 MG TABLET PO (09:24)
[2020-12-02] MEDS: CLOPIDOGREL BISULFATE 75 MG TABLET PO (09:24)
[2020-12-02] MEDS: carvediloL 6.25 MG TABLET PO (09:24)
[2020-12-02] MEDS: CITALOPRAM HYDROBROMIDE 20 MG TABLET PO (09:25)
--- NOTE | 2020-12-02 11:07 | PM.DS ---
DS: Admitting Diagnosis Admitting Diagnosis Admitting Diagnosis: Left upper susan acute infarct DS: Discharge Diagnosis Discharge Diagnosis (1) CVA (cerebral vascular accident): Code(s): I63.9 - Cerebral infarction, unspecified Status: Acute (2) Right hemiplegia: Code(s): G81.91 - Hemiplegia, unspecified affecting right dominant side Status: Acute (3) Left-sided weakness: Code(s): R53.1 - Weakness Status: Acute (4) Dysarthria: Code(s): R47.1 - Dysarthria and anarthria Status: Acute (5) Diabetes mellitus: Code(s): E11.9 - Type 2 diabetes mellitus without complications Status: Acute (6) Hyperlipidemia: Code(s): E78.5 - Hyperlipidemia, unspecified Status: Acute (7) Hypertension: Code(s): I10 - Essential (primary) hypertension Status: Acute (8) Safety awareness deficit: Status: Acute DS: Summary Hospital Course Hospital Course: see dictation Time Spent with Patient Time attestation: Total time spent providing and/or coordinating discharge services: 1 hour The etiological diagnosis is left upper susan acute infarct Patient was seen [id number] on 11/20/2020to 12/02/20 This is a 65-year-old male with past medical history of hypertension, hyperlipidemia, diabetes mellitus and 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 CT of the of the brain showed no acute stroke. CTA was negative for large vessel occlusion. Patient was given tPA for an NIH SS of 4 and was transferred to [facility]. MRI showed a small acute infarct in the left upper susan. CTA was notable for 60% stenosis in the left extracranial ICA. Echo showed an ejection fraction of of 67%. Patient was placed on aspirin Plavix and Atrovent statin. A swallow test was performed and patient past. Hospital course revealed impaired balance, decreased safety awareness, left-sided weakness, decreased gross motor is controlled. Patient also complained of backache and flank pain he was evaluate for retroperitoneal hematoma in the setting of a tPA administration. Ultrasound was negative. Back pain resolved on 11/16/2020. COVID test was negative on 11/19/2020. Therapy was initiated at the acute care facility and the patient is being transferred to us from [facility] on 11/20/2020. REHAB HOSPITAL COURSE: Diabetes was controlled on Metformin 500mg BID. Patient did not recover SSI coverage HTN with controlled on Vasotec 20 mg daily, hydrochlorothiazide 25 mg daily, Coreg 6.25 mg q.12. CVA was treated with aspirin 81 mg daily and Plavix 75 mg daily Patient progressed nicely with rehab .Motor control improved. Barriers Poor safety awareness, inability to manage medication for home, impulsivity, poor judgement. Family training and education was performed. Due to patient's impulsivity and poor safety awareness, rehab is rec 29/03 supervision. Family is aware and have verbally agreed to provide this level of care. However, the son who is 23yo has not demonstrated his ability to provide this level of care. Division of aging is already in place at his home. CM will reach out to D of A to explain our concerns. Risk of fall remains high. Patient is not able to independently manage his meds. In fact, patient gave examiner wrong information regarding home meds. When RN called pharmacy, some of his home meds were not filled in months. ADMISSION FUNCTION: Eating was independent Oral Care was partial to moderate assist Toileting Hygiene was partial to moderate assist Shower/Bathing was partial to moderate assist Upper Body Dressing was partial to moderate assist Lower Body Dressing was supervision or touching assistance Donning/Rembrandt Footwear was supervision or touching assistance Rolling Left and Right was supervision
[2020-12-02 11:56] LABS: Glucose Point of Care 116 (65-105)
== END 2020-12-02 12:15 | disposition home health service (06) | DRG 57 ==
PROVIDERS: Admitting Provider Physical Medicine & Rehabilitation; PCP Internal Medicine Infectious Disease; Visit Provider Physical Medicine & Rehabilitation
DX: I69.354 Hemiplegia and hemiparesis following cerebral infarction affecting left non-dominant side (principal); I69.351 Hemiplegia and hemiparesis following cerebral infarction affecting right dominant side; I69.322 Dysarthria following cerebral infarction; E78.5 Hyperlipidemia, unspecified; E11.9 Type 2 diabetes mellitus without complications; I10 Essential (primary) hypertension; I65.22 Occlusion and stenosis of left carotid artery; Z87.891 Personal history of nicotine dependence; Z79.02 Long term (current) use of antithrombotics/antiplatelets; Z79.4 Long term (current) use of insulin; Z23 Encounter for immunization
CPT/HCPCS: 36415; 80048; 82948; 85025; 90471; 90653; 92507; 92508; 92523; 92526; 92610; 92611; 97110; 97116; 97161; 97166; 97530; 97535; A9270; G0008; J1815

== ENCOUNTER 2023-12-03 12:15 | Inpatient (IN) | payer MEDICARE, MEDICAID, SELFPAY ==
[2023-12-03] VITALS (14 sets, daily range): BP systolic 104–142; BP diastolic 57–80; PULSE 67–81; RESP 13–24; TEMP 36.2–36.9; O2SAT 99–100; BMI 26.5
--- NOTE | ~2023-12-03 | MR_ITS ---
EXAMINATION: MR brain/brain stem wo/w con DATE: 12/04/2023 12:17 INDICATION: Left lower extremity weakness. TECHNIQUE: Magnetic resonance imaging (MRI) of the brain and brainstem was performed without and with 15 mL MultiHance intravenous contrast. COMPARISON: Head CT 12/03/2023 FINDINGS: There is no intracranial hemorrhage, acute infarction, or abnormal intracranial mass lesion . There are old infarcts in the susan and bilateral cerebellum. There are old infarcts in the bilatera l basal ganglia. There is an old infarct in the right frontal lobe. There is an old infarct in the le ft parietal lobe. There are scattered areas of nonspecific increased T2-weighted signal intensity in the cerebral white matter and susan. The ventricles are normal in size. The paranasal sinuses are otilio r. The orbits are normal. The mastoid air cells are normal. IMPRESSION: 1. Old infarcts in the brain. 2. Moderate nonspecific cerebral white matter disease, which likely represents chronic small vessel i schemic disease. Reviewed, dictated and finalized at location A. IMPRESSION: 1. Old infarcts in the brain. 2. Moderate nonspecific cerebral white matter disease, which likely represents chronic small vessel ischemic disease.
--- NOTE | ~2023-12-03 | XR_ITS ---
EXAMINATION: XR chest 2V 12/03/2023 13:41 INDICATION: Weakness. Covid. PROCEDURE: 2 view chest COMPARISON: 11/13/2020 FINDINGS: The lungs are clear. The cardiomediastinal silhouette is within normal limits. There are no pleural effusions. There is no pneumothorax suspected. IMPRESSION: 1: NO ACUTE CARDIOPULMONARY DISEASE. Reviewed, dictated and finalized at location B.
--- NOTE | ~2023-12-03 | CT_ITS ---
EXAMINATION: CTA brain carotid DATE: 12/03/2023 13:37 INDICATION: Left lower extremity weakness and numbness. TECHNIQUE: Computed tomographic angiography (CTA) of the head was performed without and with 100 mL O mnipaque-350 intravenous contrast. CTA of the neck was performed with intravenous contrast. Automated exposure control and iterative reconstruction technique were employed. The dose-length product was 1 840.76 mGy-cm. Maximum intensity projection and volume rendered 3D-reconstructions were created by cristina arzate technologist on a separate workstation. COMPARISON: Head CT 11/13/2020 FINDINGS: HEAD CTA: There are old infarcts in the cerebellum bilaterally. There are scattered areas of low atte nuation in the cerebral white matter. 2 old infarcts in the bilateral basal ganglia. There is an old infarct in the right frontal lobe. There is an old infarct in the susan. There is old infarct in left parietal lobe. There is no intracranial hemorrhage, acute infarction, or abnormal intracranial mass l esion. There are scattered areas of low attenuation in the cerebral white matter. The ventricles are normal in size. The orbits are normal. The paranasal sinuses are clear. The mastoid air cells are nor mal. The vertebral arteries are codominant. There is no significant stenosis of basilar artery or the posterior cerebral arteries. There is mild stenosis of intracranial right internal carotid artery an d moderate stenosis of left intracranial internal carotid artery. There is no significant stenosis of the anterior or middle cerebral arteries. Anterior communicating artery is normal. There is no aneur ysm. The posterior communicating arteries are normal. NECK CTA: There are nodes in the thyroid measuring up to 2.6 cm . There are no pathologically enlarge d lymph nodes. There is 0% stenosis of the proximal right internal carotid artery relative to normal distal artery lumen diameter (NASCET criteria). There is 50% stenosis of the proximal left internal carotid artery relative to normal distal artery lumen diameter. There is severe cervical spondylosis. IMPRESSION: 1. Old infarcts in the brain. 2. Stable moderate nonspecific cerebral white matter disease, which likely represents chronic small v essel ischemic disease. 3. Moderate stenosis of intracranial left internal carotid artery. 4. 0% stenosis of the proximal right internal carotid artery relative to normal distal artery lumen d iameter (NASCET criteria). 5. 50% stenosis of the proximal left internal carotid artery relative to normal distal artery lumen d iameter. 6. Multinodular goiter. Consider thyroid ultrasound for risk stratification. Reviewed, dictated and finalized at location A. IMPRESSION: 1. Old infarcts in the brain. 2. Stable moderate nonspecific cerebral white matter disease, which likely repr esents chronic small vessel ischemic disease. 3. Moderate stenosis of intracranial left internal carotid artery. 4. 0% stenosis of the proximal right internal carotid artery relative to normal distal artery lumen diameter (NASCET criteria). 5. 50% stenosis of the proximal left internal carotid artery relative to normal distal artery lumen diameter. 6. Multinodular goiter. Consider thyroid ultrasound for risk stratification.
--- NOTE | 2023-12-03 12:21 | ECG_ITS ---
Measurements Intervals [place] Rate: 75 P: 62 [place]: 176 QRS: -11 QRSD: 92 T: 67 QT: 375 QTc: 421 Interpretive Statements SINUS RHYTHM VOLTAGE CRITERIA FOR LVH NONSPECIFIC ST-T WAVE ABNORMALITY- HIGH LATERAL LEADS BASELINE ARTIFACT- I, II, III, AVR, AVL, AVF BORDERLINE ECG COMPARED TO ECG 11/13/2020 12:35:09 ST-T WAVE ABNORMALITY NOW PRESENT Electronically Signed On 12-04-2023 7:19:38 CDT by Juanjo Prescott D.O.
--- NOTE | 2023-12-03 12:41 | PC.NURSE ---
pt unable to urinate at this time due to poor hydration the past few days they state. pt was educated to use call light with any urge to urinate
[2023-12-03 12:47] LABS: Alanine Aminotransferase 28 U/L (6-50); Albumin Level 4.2 g/dL (3.5-5.1); Alkaline Phosphatase 61 U/L (38-126); Anion Gap 14 mmol/L (4-12); Aspartate Amino Transferase 36 U/L (17-59); Bilirubin,Total 0.9 mg/dL (0.2-1.3); Blood Urea Nitrogen 83 mg/dL (9-20); Calcium 10.6 mg/dL (8.4-10.2); Carbon Dioxide 13 mmol/L (22-30); Chloride 104 mmol/L (98-107); Estimated CRCL calculation 28 ml/min; Estimated Glomerular Filt Rate 36; Glucose 189 mg/dL (65-110); Potassium 3.7 mmol/L (3.4-5.0); Sodium 131 mmol/L (137-145)
[2023-12-03 12:49] LABS: Basophils Percent Auto 0.3 % (0.2-1.2); Eosinophils Percent Auto 0.1 % (0-4.4); Hematocrit 36.1 % (42.0-52.0); Hemoglobin 11.9 g/dL (14.0-18.0); Immature Granulocyte Absolute 0.05 K/mm3 (0.00-0.031); Immature Granulocyte Percent A 0.5 % (0-0.5); Lymphocytes Absolute Auto 1.34 K/mm3 (0.9-3.2); Lymphocytes Percent Auto 13.4 % (18.3-44.2); Mean Corpuscular Hemoglobin 22.6 pg (26-34); Mean Corpuscular Volume 68.5 fl (80-100); Mean Platelet Volume 9.1 fl (7.4-10.4); Monocytes Absolute Auto 0.9 K/mm3 (0.1-0.6); Monocytes Percent Auto 9.2 % (2.6-8.5); Neutrophils Absolute Auto 7.6 K/mm3 (1.3-6.7); Neutrophils Percent Auto 76.5 % (45.5-73.1); Platelet Count Result 375 k/mm3 (150-375); Red Blood Count 5.27 M/mm3 (4.6-6.20); Red Cell Distribution Width 18.4 % (11.5-14.5)
[2023-12-03 13:08] LABS: Hypochromasia 1+; Ovalocytes 1+; Platelet Estimate Adequate (Adequate); Schistocytes None Seen
[2023-12-03 13:13] LABS: Influenza A QL RT-PCR Negative (Negative); Influenza B QL RT-PCR Negative (Negative); RSV RNA, RT-PCR Negative (Negative); SARS-CoV-2 RNA PCR Positive (Negative)
--- NOTE | 2023-12-03 13:40 | PC.NURSE ---
pt to CT @1947 and back @6474
[2023-12-03] MEDS: METOCLOPRAMIDE HCL INJ 10 MG/2 ML VIAL IV PUSH (14:08)
[2023-12-03] MEDS: FAMOTIDINE 20 MG/2 ML VIAL IV PUSH (14:08)
[2023-12-03 14:17] LABS: Appearance Urine Clear (Clear); Bilirubin Urine Negative (Negative); Blood Urine Negative (Negative); Color Urine Yellow (Yellow); Glucose Urine UA 2+ mg/dL (Negative); Ketones Urine Negative (Negative); Leukocyte Esterase Ur Negative LEU/UL (Negative); Nitrate Urine Negative (Negative); Protein Urine Negative (Negative); Urobilinogen Urine 0.2 mg/dL (<2.0)
[2023-12-03 14:22] LABS: Specific Grav Ur 1.037 (1.001-1.035)
[2023-12-03 14:23] LABS: Add Urine Microscopic? NO
[2023-12-03] MEDS: LACTATED RINGERS 1,000 ML 999 ML IV CONT (14:41)
--- NOTE | 2023-12-03 14:50 | ED.WEAKNESS ---
HPI - Weakness General Chief complaint: Weakness Stated complaint: n/v, weakness, LLE numbness Time Seen by Provider: 12/03/23 12:30 History of Present Illness HPI Narrative: Patient has had 4 prior strokes, and few days ago he has not been feeling very well, has been eating less than usual because he has no appetite and feels nauseous, he noticed that 2 days ago he was having some numbness to this left lower leg. Related Data Home Medications Medication Instructions Recorded Confirmed aspirin 81 mg tablet 81 mg PO DAILY 11/20/20 12/03/23 carvedilol 6.25 mg tablet (Coreg) 6.25 mg PO BID 11/20/20 12/03/23 citalopram 20 mg tablet (Celexa) 10 mg PO DAILY 11/20/20 12/03/23 hydrochlorothiazide 25 mg tablet 25 mg PO DAILY 11/20/20 12/03/23 empagliflozin 25 mg tablet 25 mg PO DAILY 12/03/23 12/03/23 (Jardiance) enalapril maleate 20 mg tablet 5 mg PO DAILY 12/03/23 12/03/23 (Vasotec) Allergies Allergy/AdvReac Type Severity Reaction Status Date / Time No Known Allergies Allergy Unverified 03/02/17 23:58 Review of Systems Review of Systems: CONST: No fever. HEENT: No sore throat C/V: No chest pain RESP: No cough GI: Reports nausea and loss of appetite : No dysuria. M/S: No joint pain. SKIN: No rash. NEURO: Numbness the left lower leg PSYCH: [No depression] [facility] Past Medical History Medical History (Updated 12/03/23 @ 14:51 by Jennifer Arthur MD) Right pontine stroke Safety awareness deficit Family History Family History (Updated 11/20/20 @ 14:53 by Valerie Cook RN) Mother Diabetes mellitus Cerebrovascular accident Hypertension Father Cerebrovascular accident Hypertension Social History Social History Smoking status: Former smoker Alcohol intake: former Substance use: former Gender identity (if verbalized by the patient): Male Spiritual care concerns: No Exam Narrative: EXAMINATION OF ORGAN SYSTEMS/BODY AREAS: Constitutional: Vital signs per nursing GENERAL:[No acute distress, non-toxic appearing.] HEAD: Normal with no signs of head trauma. EYES: EOMI, conjunctiva normal, PERRL ENT: Hearing grossly intact LUNGS: Nonlabored breathing. HEART: [Regular rate and rhythm] ABD: [Soft], [nontender to palpation] EXT: No deformity SKIN: [No rashes or lesions.] NEURO: [Alert and oriented x 3. Slighty dysarthria. LLE against gravity but weak compared to RLE; slightly diminished sensation. Normal coordination. No gross focal sensory or strength deficits.] PSYCH: Normal affect Course Vital Signs Vital signs: Vital Signs Temperature 98.5 F 12/03/23 12:06 Pulse Rate 75 12/03/23 12:06 Respiratory Rate 19 12/03/23 12:06 Blood Pressure 142/72 H 12/03/23 12:06 Pulse Oximetry 100 12/03/23 12:06 Oxygen Delivery Room Air 12/03/23 12:06 Temperature 98.5 F 12/03/23 12:06 Pulse Rate 80 12/03/23 14:31 Respiratory Rate 22 H 12/03/23 14:31 Blood Pressure 121/65 12/03/23 14:31 Pulse Oximetry 100 12/03/23 14:31 Oxygen Delivery Room Air 12/03/23 12:25 MDM - Weakness MDM Narrative Medical decision making narrative: 68-year-old male presenting with diminished sensation to left lower leg pain on exam he actually also has weakness to the left lower leg. He is out of tPA or other intervention and so at this time unfortunately. He does test positive for COVID. CTA head and neck does not show any obvious acute abnormality. Discussed the case with the patient with Neurology who recommends admission at this time, discussed with hospitalist. Lab Data 12/03/23 12:23 12/03/23 12:23 Labs: Lab Results 12/03/23 12/03/23 12/03/23 Range/Units 12:23 12:25 14:06 WBC 10.0 (4.5-10.0) K/mm3 RBC 5.27 (4.6-6.20) M/mm3 Hgb 11.9 L (14.0-18.0) g/dL Hct 36.1 L (42.0-52.0) % MCV 68.5 L (80-100) fl MCH 22.6 L (26-34) pg MCHC 33.0
--- NOTE | 2023-12-03 15:13 | PM.IMHP ---
H&P: HPI History of Present Illness Date/Time: 12/03/23 15:13 Chief Complaint: Weakness, N/V, Poor PO intake Narrative: 68 y/o M presents here with weakness, LLE numbness, N/V and poor PO intake with PMH of CVA (x4 - residual deficits of LLE weakness, mild dysarthria, dysphagia). Patient presents here via EMS from home for further evaluation of weakness, nausea, vomiting, poor p.o. intake, and left lower extremity numbness. First noted left lower extremity numbness 2 days ago. Patient reports it is the whole leg and has affected his gait. States it doesn't want to move . Patient has history of see below with residual left-sided weakness in his lower extremity and upper extremity. States the current weakness in his left leg slightly worse than his baseline. Currently uses a rolling walker. No upper extremity weakness, increased dysarthria, increased dysphagia, or numbness to face/upper extremities. Poor p.o. intake, N/V, and generalized weakness started 2 days ago as well. Endorsing cough, mild shortness of breath, and chest discomfort. Chest discomfort is in his upper chest, midline, and burning. Patient believes it is more so acid reflux symptoms. Laying flat makes burning sensation/discomfort worse. Some alleviation with drinking water. No aggravating or alleviating factors to SOB. Currently lives at home, son lives with him, and son occasionally offers assistance. No other complaints. Initial VS at presentation: 98.5? F, HR 75, RR 19, 142/72, and 100% on RA. ED workup showed: No leukocytosis, mild anemia, Na 131, creatinine 2.2 (previously 1.6 on 11/28/2020), glucose 189, and UA not suggestive of UTI. He viral PCR showed COVID positive. CXR showed no acute cardiopulmonary disease. CTA of the head and neck showed old infarcts, stable moderate nonspecific cerebral white matter disease, moderate stenosis of intracranial left internal carotid artery, 0 C% stenosis of the proximal right ICA and 50% stenosis of the proximal left ICA, and a multinodular goiter. Review of Systems Review of Systems: All systems reviewed & are unremarkable except as noted in HPI and below [facility] Past Medical History Medical History (Updated 12/03/23 @ 21:36 by Kayla Cage, KEVIN) CVA (cerebral vascular accident) R pontine CVA - 2020 Cerebellum bilaterally Bilateral basal ganglia Right frontal lobe Left parietal lobe Diabetes mellitus Dysarthria Hypertension Left-sided weakness Safety awareness deficit Surgical History Surgical History No history of previous surgery Family History Family History Mother Diabetes mellitus Cerebrovascular accident Hypertension Father Cerebrovascular accident Hypertension Social History Social History Smoking status: Former smoker Alcohol intake: former Substance use: former Do You Feel Safe in your Home?: Yes Lack of Transportation: No Lack of Food: Never True Current Housing: I Have Housing Concerned About Future Housing: No Difficulty Paying Gas/Electric Bills: No Difficulty Paying for Meds: No Currently Unemployed: No Education: Decline to Answer Difficulty w/ Childcare or Family Care: No Gender identity (if verbalized by the patient): Male Spiritual care concerns: No Meds Home Medications and Allergies Home Medications Medication Instructions Recorded Confirmed Type aspirin 81 mg tablet 81 mg PO DAILY 11/20/20 12/03/23 History carvedilol 6.25 mg tablet (Coreg) 6.25 mg PO BID 11/20/20 12/03/23 History citalopram 20 mg tablet (Celexa) 10 mg PO DAILY 11/20/20 12/03/23 History hydrochlorothiazide 25 mg tablet 25 mg PO DAILY 11/20/20 12/03/23 History atorvastatin 40 mg tablet (Lipitor) 40 mg PO HS #30 tabs 12/02/20 12/03/23 Rx clopidogrel 75 mg tablet (Plavix) 75 mg PO DAILY #30 tabs
--- NOTE | 2023-12-03 16:20 | ADMGEN ---
This patient, Raza Radford, was admitted to Medical Room 258-01. Patient/family oriented to hospital policies and general routines including ID bracelet, bed and alarms, visiting hours, pain management, procedures, bathroom and other care routines, personal items, smoking policy, room service/diet, and visiting hours. Information on how to activate the Rapid Response Team has been discussed. Patient/Family are encouraged to report perceived risks to care and to ask questions if they do not understand what they are told or what they should do.
[2023-12-03 20:31] LABS: Glucose Point of Care 89 mg/dl (65-105)
[2023-12-03] MEDS: carvediloL 6.25 MG TABLET PO (20:41)
[2023-12-03] MEDS: ATORVASTATIN 40 MG TABLET PO (20:41)
[2023-12-03] MEDS: REMDESIVIR 200 MG/NS 250 ML 200 MG/250 ML BAG 250 MG IVPB (20:42)
[2023-12-04] VITALS (11 sets, daily range): BP systolic 118–150; BP diastolic 56–62; PULSE 66–82; RESP 14–18; TEMP 36.4–36.9; O2SAT 95–100
[2023-12-04] MEDS: PANTOPRAZOLE SODIUM IV 40 MG VIAL IV PUSH ×2 (00:07→09:33)
[2023-12-04 05:54] LABS: Basophils Percent Auto 0.2 % (0.2-1.2); Eosinophils Percent Auto 0.2 % (0-4.4); Hematocrit 36.6 % (42.0-52.0); Hemoglobin 11.7 g/dL (14.0-18.0); Immature Granulocyte Absolute 0.03 K/mm3 (0.00-0.031); Immature Granulocyte Percent A 0.3 % (0-0.5); Lymphocytes Percent Auto 20.8 % (18.3-44.2); Mean Corpuscular Hemoglobin 22.8 pg (26-34); Mean Corpuscular Volume 71.2 fl (80-100); Mean Platelet Volume 9.3 fl (7.4-10.4); Monocytes Absolute Auto 1.2 K/mm3 (0.1-0.6); Neutrophils Absolute Auto 5.6 K/mm3 (1.3-6.7); Neutrophils Percent Auto 64.5 % (45.5-73.1); Platelet Count Result 352 k/mm3 (150-375); Red Blood Count 5.14 M/mm3 (4.6-6.20); Red Cell Distribution Width 18.9 % (11.5-14.5); White Blood Count 8.7 K/mm3 (4.5-10.0)
[2023-12-04 06:12] LABS: Hemoglobin A1C 6.8 % (<5.7)
[2023-12-04 06:18] LABS: LDL Cholesterol Direct 41 mg/dL
[2023-12-04 06:31] LABS: Platelet Estimate Adequate (Adequate)
[2023-12-04 06:32] LABS: Anisocytosis 1+; Hypochromasia 1+; Schistocytes None Seen; Target Cells 1+
[2023-12-04 06:35] LABS: Alanine Aminotransferase 25 U/L (6-50); Alkaline Phosphatase 57 U/L (38-126); Anion Gap 15 mmol/L (4-12); Aspartate Amino Transferase 34 U/L (17-59); Bilirubin,Total 0.6 mg/dL (0.2-1.3); Blood Urea Nitrogen 72 mg/dL (9-20); Carbon Dioxide 11 mmol/L (22-30); Chloride 109 mmol/L (98-107); Cholesterol 90 mg/dL (0-200); Estimated CRCL calculation 36 ml/min; Estimated Glomerular Filt Rate 49; Glucose 72 mg/dL (65-110); HDL Direct 34 mg/dL; Potassium 3.2 mmol/L (3.4-5.0); Sodium 135 mmol/L (137-145); Triglycerides 170 mg/dL (<150)
[2023-12-04 08:30] LABS: Glucose Point of Care 80 mg/dl (65-105)
[2023-12-04] MEDS: CLOPIDOGREL BISULFATE 75 MG TABLET PO (09:32)
[2023-12-04] MEDS: carvediloL 6.25 MG TABLET PO ×2 (09:32→17:55)
[2023-12-04] MEDS: ASPIRIN 81 MG ENTERIC TABLET PO (09:32)
[2023-12-04] MEDS: hydroCHLOROthiazide 25 MG TABLET PO (09:32)
[2023-12-04] MEDS: CITALOPRAM HYDROBROMIDE 10 MG TABLET PO (09:32)
[2023-12-04] MEDS: EMPAGLIFLOZIN 25 MG TABLET PO (09:32)
[2023-12-04] MEDS: HEPARIN SODIUM 5,000 UNITS/ML VIAL 5000 UNITS SUB-Q ×2 (09:33→20:48)
[2023-12-04] MEDS: ENALAPRIL MALEATE 5 MG TABLET PO (09:33)
[2023-12-04 10:36] LABS: Erythrocyte Sedimentation Rate 26 mm/hr (0-20)
--- NOTE | 2023-12-04 11:11 | WPDNEURCNPN ---
Assessment and Plan Assessment and plan (1) Left leg numbness: Code(s): R20.0 - Anesthesia of skin Status: Acute (2) Hypertension: Code(s): I10 - Essential (primary) hypertension Status: Acute (3) Diabetes mellitus: Code(s): E11.9 - Type 2 diabetes mellitus without complications Status: Acute Plan Raza Radford is a 68 year old male with a history of HTN, DM, prior strokes with chronic L sided weakness, dysarthria, dysphagia, presenting for evaluation of nausea, vomiting, poor PO intake, and LLE numbness and worsening LLE weakness. Could be stroke recrudescence due to underlying illness (COVID positive). Will need MRI brain to rule out new infarct. On my read of the MRI, I do not see an acute infarct. - MRI brain final read is pending - Continue Aspirin, Plavix, and Lipitor Consult date: 12/04/23 Reason for consult: LLE weakness HPI: Raza Radford is a 68 year old male with a history of HTN, DM, prior strokes with chronic L sided weakness, dysarthria, dysphagia, presenting for evaluation of nausea, vomiting, poor PO intake, and worsening LLE weakness. Patient first noted worsening L sided weakness about 2 days prior to admission. As mentioned above, at baseline patient has residual L sided weakness involving the LUE and LLE. He currently feels that the weakness in his left leg is slightly worse than his baseline. He denies any other new focal deficits. He denies any new LLE numbness, which was reported earlier in his chart. In the ED, he had a CT head which showed no acute changes. CTA brain/carotid showed old infarcts in the brain (bilateral basal ganglia, R frontal lobe, susan, and L parietal lobe) and 50% stenosis of the proximal L ICA. His BP in the ED was 142/72/ His EKG shows normal sinus rhythm. UA was not suggestive of UTI. He was found to be COVID positive. His medication list includes baby aspirin, Atorvastatin 40mg daily, Plavix 75mg daily. His HgbA1c is 6.8 and LDL is 41 form this admission. MRI brain report is still pending but on my preliminary read, I do not see an acute stroke. Review of Systems Review of Systems: All systems reviewed & are unremarkable except as noted in HPI and below PMFSH Past Medical History Medical History CVA (cerebral vascular accident) R pontine CVA - 2020 Cerebellum bilaterally Bilateral basal ganglia Right frontal lobe Left parietal lobe Diabetes mellitus Dysarthria Hypertension Left-sided weakness Safety awareness deficit Surgical History Surgical History No history of previous surgery Family History Family History Mother Diabetes mellitus Cerebrovascular accident Hypertension Father Cerebrovascular accident Hypertension Social History Social History Smoking status: Former smoker Alcohol intake: former Substance use: former Do You Feel Safe in your Home?: Yes Lack of Transportation: No Lack of Food: Never True Current Housing: I Have Housing Concerned About Future Housing: No Difficulty Paying Gas/Electric Bills: No Difficulty Paying for Meds: No Currently Unemployed: No Education: Decline to Answer Difficulty w/ Childcare or Family Care: No Gender identity (if verbalized by the patient): Male Spiritual care concerns: No Meds Home Medications and Allergies Home Medications Medication Instructions Recorded Confirmed Type aspirin 81 mg tablet 81 mg PO DAILY 11/20/20 12/03/23 History carvedilol 6.25 mg tablet (Coreg) 6.25 mg PO BID 11/20/20 12/03/23 History citalopram 20 mg tablet (Celexa) 10 mg PO DAILY 11/20/20 12/03/23 History hydrochlorothiazide 25 mg tablet 25 mg PO DAILY 11/20/20 12/03/23 History atorvastatin 40 mg tablet (Lipitor) 40 mg PO HS #30 tabs 12/02/20 12/03/23 Rx
[2023-12-04 12:56] LABS: Glucose Point of Care 134 mg/dl (65-105)
--- NOTE | 2023-12-04 13:12 | PCSTNOTE ---
Bedside swallowing evaluation. Patient sitting on edge of bed and feeding self lunch. Cursory oral peripheral examination performed, noted mildly impaired tongue tip control. Upper teeth missing and dentures not present at bedside. Patient was served pick up truck driver salad (cueto tomatoes, cucumber slices, lettuce, ranch dressing) and a peeled orange. He insisted that he knows he is safe eating raw fruits and vegetables. Observation during this evaluation confirmed this. He was able to chew and swallow bites of raw fruits and vegetables without cues and with no signs of choking or aspiration. No difficulty with drinking liquids from straw (no anterior loss, no signs of aspiration). Based on this evaluation, recommendations include: regular texture diet (level 7), thin liquids (level 0), straws ok. Position upright for all meals and when drinking. Small bite size recommended. Frequent observation by staff. Please note that silent aspiration cannot be ruled out at bedside and can be evaluated with a modified barium swallow study if so desired. Note: patient complains of long standing frequent burping and heart burn when eating. Communicated this to his nurse. No further speech therapy is recommended. Thank you for the referral of this patient.
--- NOTE | 2023-12-04 13:27 | PM.IMPN ---
Progress Note: A&P Assessment and Plan (1) Left-sided weakness: Code(s): R53.1 - Weakness Status: Acute Assessment and Plan: Worsening deficit of LLE weakness starting on 11/30. Imaging showed old infarcts. -Work up in progress. - CXR: no acute cardiopulmonary disease - CTA 1. Old infarcts in the brain. 2. Stable moderate nonspecific cerebral white matter disease, which likely represents chronic small vessel ischemic disease. 3. Moderate stenosis of intracranial left internal carotid artery. 4. 0% stenosis of the proximal right internal carotid artery relative to normal distal artery lumen diameter (NASCET criteria). 5.. 50% stenosis of the proximal left internal carotid artery relative to normal distal artery lumen diameter. 6. Multinodular goiter. Consider thyroid ultrasound for risk stratification. - neurology consulted - Walt LANDEROS, awaiting recs - brain MRI w/wo ordered - echo w/Bubble ordered - neuro checks Q4 - NPO - speech/swallow eval - PT/OT to eval and treat - monitor daily labs. add lipid panel, A1C - fall precautions - continue Atorvastatin 40 mg PO, Plavix 75 mg PO, and ASA 81 mg - suspect exacerbation of previous deficits due to COVID, however will continue workup given extensive infarct hx (2) COVID-19: Code(s): U07.1 - COVID-19 Status: Acute Assessment and Plan: - symptom onset: 11/30 - tested positive for COVID on: 12/02 - complicating comorbidities: none - CXR: no acute cardiopulmonary disease - start Remdesivir 200 mg IVPB x1 then 100 mg x4 for 5 total doses. - no hypoxia, hold on adding dexamethasone - prophylaxis: heparin 5,000 units SQ bid - low threshold for DVT/PE w/u - no current symptoms - supportive care TYL prn for fever/pain benadryl prn for nausea and vomiting, on home medication that placed patient at risk for QT prolongation lozenge prn tessalon perles prn - monitor VS/O2 - monitor daily labs, add ESR to AM labs (3) Diabetes mellitus: Code(s): E11.9 - Type 2 diabetes mellitus without complications Status: Acute Assessment and Plan: - hypoglycemia protocol - POC blood glucose ACHS - home medication: hold home metformin, continue Jardiance - correct regimen ordered - low/high dose TIDWM and HS - A1C ordered (4) Hypertension: Code(s): I10 - Essential (primary) hypertension Status: Acute Assessment and Plan: - chronic, currently 136/76 - continue home medications: Carvedilol 6.25 mg b.i.d., enalapril 5 mg daily, HCTZ 25 mg daily - monitor Plan Diet: NPO, speech to see GI Prophylaxis: Pantoprazole IVP DVT Prophylaxis: Mechanical Code Status: Full code Subjective Date/time seen: 12/04/23 13:27 Interval history: patient was seen during the morning rounds today. Feeling ok. No sob or chest pain. No abdominal pain Mood stable Review of Systems Review of Systems: All systems reviewed & are unremarkable except as noted in HPI and below Exam Narrative: L sided weakness, trace. mild drift to LLE. dysarthria. no facial droop. Const: Other: , male, nontoxic appearance HENMT: Face/Nose/Sinus: Normal nares present Mouth: Yes moist mucous membranes Eyes: General: appearance normal, both eyes and all related structures Sclera: sclerae normal Pupils: Equal, round and reactive pupils present EOM: EOMs intact bilaterally Resp: Effort & Inspection: normal respiratory effort Auscultation: clear to auscultation bilaterally Other: No wheezing. Cardio: Rate: regular rate Rhythm: regular rhythm Other: S1-S2 present without murmur, rub, ectopy GI: Other: nondistended, nontender Skin: General skin exam: normal color and no rashes or lesions noted Wounds: no wounds Neuro: Cranial nerves: Yes Equal, round and reactive pupils present Other: +dysarthria, residual and unchanged. Left upper extremity and left lower extremity
[2023-12-04 17:10] LABS: Glucose Point of Care 225 mg/dl (65-105)
[2023-12-04] MEDS: POTASSIUM CHLORIDE 20 MEQ ER TABLET 40 MEQ PO (17:55)
[2023-12-04] MEDS: INSULIN ASPART (*BKC) 100 UNITS/ML SUB-Q ×2 (17:56→20:50)
[2023-12-04] MEDS: ATORVASTATIN 40 MG TABLET PO (20:48)
[2023-12-04] MEDS: REMDESIVIR 100 MG/NS 250 ML 100 MG/250 ML BAG 250 MG IVPB (20:49)
--- NOTE | 2023-12-04 21:42 | ECHO_ITS ---
Patient Info Name: Raza Radford Age: 68 years : 1955 Gender: Male Ht: 67 in Wt: 159 lbs BSA: 1.86 m2 HR: 68 bpm BP: 119 / 62 mmHg Heart Rhythm: Sinus Rhythm Technical Quality: Good Exam Date: 12/04/2023 7:45 AM Exam Location: Echo Lab Patient Status: Inpatient Admit Date: 12/03/2023 Staff Ordering Physician: Kayla Cage APRN [place] Jump Master: Jv Henao RDCS Attending Provider: Mychal St MD Referring Physician: Fauzia DE LEON; Exam Type: CA echo doppler w bubble study Study Info Indications - CVA Complete two-dimensional, color flow and Doppler transthoracic echocardiogram is performed with agitated saline. Contrast/Agitated Saline Contrast/Ag. Saline: Agitated Saline Amount: 20.00 ml Summary 1. No evidence for interatrial shunt with injection of agitated saline with and without Valsalva. 2. There is mild aortic valve sclerosis. Mild focal calcification of the commissure between right and non coronary cusp. 3. The left ventricular diastolic function is grade I diastolic dysfunction. 4. Left ventricular septal wall motion is abnormal with septal motion related to bundle branch block. 5. There is mildly increased left ventricular wall thickness. 6. Left ventricular systolic function is normal, estimated at 65-70%. 7. Left ventricular chamber dimension is normal. Recommendations * Consider transesophageal echocardiogram if clinically indicated. Left Ventricle Left ventricular chamber dimension is normal. Left ventricular systolic function is normal, estimated at 65-70%. There is mildly increased left ventricular wall thickness. Left ventricular septal wall motion is abnormal with septal motion related to bundle branch block. The left ventricular diastolic function is grade I diastolic dysfunction. Right Ventricle Right ventricular chamber dimension is normal. Right ventricular systolic function is normal. Left Atria Left atrial chamber dimension is normal. Right Atria Right atrial chamber dimension is normal. Atrial Septum No evidence for interatrial shunt with injection of agitated saline with and without Valsalva. Aortic Valve There is mild aortic valve sclerosis. Mild focal calcification of the commissure between right and non coronary cusp. The aortic valve is not well visualized. There is no aortic valve regurgitation. Pulmonic Valve The pulmonic valve is not well visualized. Mitral Valve The mitral valve has normal leaflets. There is trace mitral valve regurgitation. Tricuspid Valve The tricuspid valve leaflets are normal. There is trace tricuspid valve regurgitation. No pulmonary hypertension, estimated pulmonary arterial systolic pressure is 27 mmHg. Pericardium/Pleural The pericardium appears normal. There is no pericardial effusion. Inferior Vena Cava Normal inferior vena cava with >50% collapse upon inspiration consistent with normal right atrial pressure, 5 mmHg. Aorta The aortic root size at the sinus of Valsalva is normal. There is mild aortic atherosclerosis. Left Ventricular Outflow Tract Name Value Normal LVOT 2D LVOT Diameter 2.0 cm LVOT Doppler LVOT Peak Gradient 2 mmHg
[2023-12-04 22:51] LABS: Glucose Point of Care 246 mg/dl (65-105)
[2023-12-05] VITALS (13 sets, daily range): BP systolic 116–132; BP diastolic 57–68; PULSE 65–74; RESP 16; TEMP 36.4–36.7; O2SAT 95–100
[2023-12-05 05:27] LABS: Alanine Aminotransferase 50 U/L (6-50); Albumin Level 3.7 g/dL (3.5-5.1); Alkaline Phosphatase 70 U/L (38-126); Anion Gap 10 mmol/L (4-12); Aspartate Amino Transferase 47 U/L (17-59); Bilirubin,Total 0.4 mg/dL (0.2-1.3); Blood Urea Nitrogen 61 mg/dL (9-20); Carbon Dioxide 14 mmol/L (22-30); Chloride 109 mmol/L (98-107); Estimated CRCL calculation 36 ml/min; Estimated Glomerular Filt Rate 49; Glucose 104 mg/dL (65-110); Potassium 2.9 mmol/L (3.4-5.0); Sodium 133 mmol/L (137-145)
[2023-12-05 06:11] LABS: Prothrombin Time 13.7 Seconds (11.1-14.7)
[2023-12-05 08:26] LABS: Glucose Point of Care 114 mg/dl (65-105)
[2023-12-05] MEDS: ASPIRIN 81 MG ENTERIC TABLET PO (09:46)
[2023-12-05] MEDS: EMPAGLIFLOZIN 25 MG TABLET PO (09:47)
[2023-12-05] MEDS: ENALAPRIL MALEATE 5 MG TABLET PO (09:47)
[2023-12-05] MEDS: CITALOPRAM HYDROBROMIDE 10 MG TABLET PO (09:47)
[2023-12-05] MEDS: HEPARIN SODIUM 5,000 UNITS/ML VIAL 5000 UNITS SUB-Q ×2 (09:47→20:48)
[2023-12-05] MEDS: carvediloL 6.25 MG TABLET PO ×2 (09:47→17:53)
[2023-12-05] MEDS: PANTOPRAZOLE SODIUM IV 40 MG VIAL IV PUSH (09:47)
[2023-12-05] MEDS: hydroCHLOROthiazide 25 MG TABLET PO (09:47)
[2023-12-05] MEDS: CLOPIDOGREL BISULFATE 75 MG TABLET PO (09:47)
--- NOTE | 2023-12-05 11:58 | PM.IMPN ---
Progress Note: A&P Assessment and Plan (1) Left-sided weakness: Code(s): R53.1 - Weakness Status: Acute Assessment and Plan: Worsening deficit of LLE weakness starting on 11/30. Imaging showed old infarcts. -Work up in progress. - CXR: no acute cardiopulmonary disease - CTA 1. Old infarcts in the brain. 2. Stable moderate nonspecific cerebral white matter disease, which likely represents chronic small vessel ischemic disease. 3. Moderate stenosis of intracranial left internal carotid artery. 4. 0% stenosis of the proximal right internal carotid artery relative to normal distal artery lumen diameter (NASCET criteria). 5.. 50% stenosis of the proximal left internal carotid artery relative to normal distal artery lumen diameter. 6. Multinodular goiter. Consider thyroid ultrasound for risk stratification. - neurology consulted - Walt LANDEROS, awaiting recs - neuro checks Q4 PT/OT (2) COVID-19: Code(s): U07.1 - COVID-19 Status: Acute Assessment and Plan: - symptom onset: 11/30 - tested positive for COVID on: 12/02 - complicating comorbidities: none - CXR: no acute cardiopulmonary disease - start Remdesivir 200 mg IVPB x1 then 100 mg x4 for 5 total doses. - no hypoxia, hold on adding dexamethasone - prophylaxis: heparin 5,000 units SQ bid - low threshold for DVT/PE w/u - no current symptoms - supportive care TYL prn for fever/pain benadryl prn for nausea and vomiting, on home medication that placed patient at risk for QT prolongation lozenge prn tessalon perles prn - monitor VS/O2 (3) Diabetes mellitus: Code(s): E11.9 - Type 2 diabetes mellitus without complications Status: Acute Assessment and Plan: Stable on current medication, continue current treatmen (4) Hypertension: Code(s): I10 - Essential (primary) hypertension Status: Acute Assessment and Plan: Stable on current medication, continue current treatmen (5) Hypokalemia: Code(s): E87.6 - Hypokalemia Status: Acute Assessment and Plan: Replace and monitor Plan Diet: NPO, speech to see GI Prophylaxis: Pantoprazole IVP DVT Prophylaxis: Mechanical Code Status: Full code Subjective Date/time seen: 12/05/23 11:58 Interval history: patient was seen during the morning rounds today. Feeling ok. No new overnight complaints. No sob or chest pain. No abdominal pain Mood stable Review of Systems Review of Systems: All systems reviewed & are unremarkable except as noted in HPI and below Exam Narrative: L sided weakness, trace. mild drift to LLE. dysarthria. no facial droop. Const: Other: , male, nontoxic appearance HENMT: Face/Nose/Sinus: Normal nares present Mouth: Yes moist mucous membranes Eyes: General: appearance normal, both eyes and all related structures Sclera: sclerae normal Pupils: Equal, round and reactive pupils present EOM: EOMs intact bilaterally Resp: Effort & Inspection: normal respiratory effort Auscultation: clear to auscultation bilaterally Other: No wheezing. Cardio: Rate: regular rate Rhythm: regular rhythm Other: S1-S2 present without murmur, rub, ectopy GI: Other: nondistended, nontender Skin: General skin exam: normal color and no rashes or lesions noted Wounds: no wounds Neuro: Cranial nerves: Yes Equal, round and reactive pupils present Other: +dysarthria, residual and unchanged. Left upper extremity and left lower extremity weakness. Drift without hitting the bed to left lower extremity. No facial droop. No sensation changes on exam. No visual changes and cardinal directions normal. NIHSS: 2, dysarthria and drift without hitting the bed to LLE. Extrem: General: normal to inspection Psych: Mental Status: mental status grossly normal Affect: normal affect Other: fair insight and judgement. Objective Data Vital Signs Vital
[2023-12-05 12:32] LABS: Glucose Point of Care 177 mg/dl (65-105)
[2023-12-05] MEDS: POTASSIUM CHLORIDE 20 MEQ PACKET (FOR LIQUID) 40 MEQ PO ×2 (12:57→17:53)
[2023-12-05 17:16] LABS: Glucose Point of Care 188 mg/dl (65-105)
[2023-12-05 20:37] LABS: Glucose Point of Care 165 mg/dl (65-105)
[2023-12-05] MEDS: ACETAMINOPHEN 325 MG TABLET 650 MG PO (20:48)
[2023-12-05] MEDS: ATORVASTATIN 40 MG TABLET PO (20:48)
[2023-12-05] MEDS: REMDESIVIR 100 MG/NS 250 ML 100 MG/250 ML BAG 250 MG IVPB (21:13)
[2023-12-06] VITALS (10 sets, daily range): BP systolic 128–139; BP diastolic 70–72; PULSE 64–76; RESP 15–16; TEMP 36.4–36.5; O2SAT 99–100
[2023-12-06] MEDS: ACETAMINOPHEN 325 MG TABLET 650 MG PO ×2 (05:36→10:38)
[2023-12-06 06:02] LABS: Alanine Aminotransferase 62 U/L (6-50); Albumin Level 3.6 g/dL (3.5-5.1); Alkaline Phosphatase 76 U/L (38-126); Anion Gap 11 mmol/L (4-12); Aspartate Amino Transferase 50 U/L (17-59); Bilirubin,Total 0.5 mg/dL (0.2-1.3); Blood Urea Nitrogen 44 mg/dL (9-20); Calcium 8.6 mg/dL (8.4-10.2); Carbon Dioxide 15 mmol/L (22-30); Chloride 108 mmol/L (98-107); Estimated CRCL calculation 41 ml/min; Estimated Glomerular Filt Rate 57; Glucose 120 mg/dL (65-110); Sodium 134 mmol/L (137-145)
[2023-12-06 08:22] LABS: Glucose Point of Care 140 mg/dl (65-105)
[2023-12-06] MEDS: hydroCHLOROthiazide 25 MG TABLET PO (10:31)
[2023-12-06] MEDS: ASPIRIN 81 MG ENTERIC TABLET PO (10:31)
[2023-12-06] MEDS: CLOPIDOGREL BISULFATE 75 MG TABLET PO (10:32)
[2023-12-06] MEDS: CITALOPRAM HYDROBROMIDE 10 MG TABLET PO (10:32)
[2023-12-06] MEDS: carvediloL 6.25 MG TABLET PO ×2 (10:32→18:24)
[2023-12-06] MEDS: EMPAGLIFLOZIN 25 MG TABLET PO (10:32)
[2023-12-06] MEDS: ENALAPRIL MALEATE 5 MG TABLET PO (10:33)
[2023-12-06] MEDS: HEPARIN SODIUM 5,000 UNITS/ML VIAL 5000 UNITS SUB-Q (10:33)
[2023-12-06] MEDS: PANTOPRAZOLE SODIUM IV 40 MG VIAL IV PUSH (10:33)
--- NOTE | 2023-12-06 12:21 | PM.IMPN ---
Progress Note: A&P Assessment and Plan (1) Left-sided weakness: Code(s): R53.1 - Weakness Status: Acute Assessment and Plan: 12/05/23: Worsening deficit of LLE weakness starting on 11/30. Imaging showed old infarcts. -Work up in progress. - CXR: no acute cardiopulmonary disease - CTA 1. Old infarcts in the brain. 2. Stable moderate nonspecific cerebral white matter disease, which likely represents chronic small vessel ischemic disease. 3. Moderate stenosis of intracranial left internal carotid artery. 4. 0% stenosis of the proximal right internal carotid artery relative to normal distal artery lumen diameter (NASCET criteria). 5.. 50% stenosis of the proximal left internal carotid artery relative to normal distal artery lumen diameter. 6. Multinodular goiter. Consider thyroid ultrasound for risk stratification. - neurology consulted - Walt LANDEROS, awaiting recs - neuro checks Q4 PT/OT 12/06/23: Neurology following Continue neuro checks No change to current treatment plan (2) COVID-19: Code(s): U07.1 - COVID-19 Status: Acute Assessment and Plan: 12/05/23: - symptom onset: 11/30 - tested positive for COVID on: 12/02 - complicating comorbidities: none - CXR: no acute cardiopulmonary disease - start Remdesivir 200 mg IVPB x1 then 100 mg x4 for 5 total doses. - no hypoxia, hold on adding dexamethasone - prophylaxis: heparin 5,000 units SQ bid - low threshold for DVT/PE w/u - no current symptoms - supportive care TYL prn for fever/pain benadryl prn for nausea and vomiting, on home medication that placed patient at risk for QT prolongation lozenge prn tessalon perles prn - monitor VS/O2 12/06/23: Continue with current treatment (3) Diabetes mellitus: Code(s): E11.9 - Type 2 diabetes mellitus without complications Status: Acute Assessment and Plan: 12/05/23: Stable on current medication, continue current treatment 12/06/23: Blood sugars ranging 120-179 Hemoglobin A1c 6.8 Accu-Cheks AC and HS Diabetic diet Low-dose sliding scale insulin ordered Continue to hold metformin (4) Hypertension: Code(s): I10 - Essential (primary) hypertension Status: Acute Assessment and Plan: 12/05/23: Stable on current medication, continue current treatment 12/06/23: Blood pressure ranging 128/64 to 139/70 Continue enalapril and hydrochlorothiazide (5) Hypokalemia: Code(s): E87.6 - Hypokalemia Status: Acute Assessment and Plan: 12/05/23: Replace and monitor 12/06/23: Potassium 3.0 Will replace with 60 mEq potassium today Continue to trend (6) Hyperlipidemia: Code(s): E78.5 - Hyperlipidemia, unspecified Status: Acute Assessment and Plan: 12/06/23: Continue aspirin, Plavix, atorvastatin Time Spent With Patient Time with patient: 25 - 35 minutes Subjective Date/time seen: 12/06/23 12:21 Interval history: This is a 68-year-old male who presented on 12/03/2023 with nausea, vomiting, weakness, poor p.o. intake. Hospital included a chest x-ray which was negative. Head and neck CTA which showed old infarcts in the brain, age-related changes, 50% stenosis of the proximal left internal carotid artery, 0% stenosis on the right, multinodular goiter. Brain MRI showing old infarcts in the brain, moderate nonspecific cerebral white matter disease. Review of Systems Review of Systems: All systems reviewed & are unremarkable except as noted in HPI and below Constitutional: Constitutional: Reports as per HPI and Reports no additional constitutional complaints Eyes: Eyes: Reports as per HPI and Reports no additional eye complaints ENT: Reports system reviewed and no additional complaints, except as documented and Reports as per HPI Cardiovascular: Cardiovascular: Reports as per HPI and Reports no additional cardiovascular complaints Respiratory: Respiratory: Reports as per HPI and Reports no
[2023-12-06 12:23] LABS: Glucose Point of Care 179 mg/dl (65-105)
[2023-12-06 12:39] LABS: Basophils Percent Auto 0.4 % (0.2-1.2); Eosinophils Absolute Auto 0.1 K/mm3 (0-0.3); Eosinophils Percent Auto 0.8 % (0-4.4); Hematocrit 31.9 % (42.0-52.0); Hemoglobin 10.4 g/dL (14.0-18.0); Immature Granulocyte Absolute 0.01 K/mm3 (0.00-0.031); Immature Granulocyte Percent A 0.1 % (0-0.5); Lymphocytes Absolute Auto 1.54 K/mm3 (0.9-3.2); Mean Corpuscular HGB Conc 32.6 g/dl (32-36); Mean Corpuscular Hemoglobin 22.5 pg (26-34); Mean Corpuscular Volume 68.9 fl (80-100); Mean Platelet Volume 9.3 fl (7.4-10.4); Monocytes Percent Auto 13.3 % (2.6-8.5); Neutrophils Absolute Auto 4.7 K/mm3 (1.3-6.7); Neutrophils Percent Auto 64.4 % (45.5-73.1); Platelet Count Result 352 k/mm3 (150-375); Red Blood Count 4.63 M/mm3 (4.6-6.20); Red Cell Distribution Width 17.8 % (11.5-14.5); White Blood Count 7.3 K/mm3 (4.5-10.0)
[2023-12-06 12:41] LABS: Magnesium 2.4 mg/dL (1.6-2.3)
[2023-12-06 13:33] LABS: Anisocytosis 1+; Burr Cells 2+; Platelet Estimate Adequate (Adequate); Poikilocytosis 1+; Schistocytes None Seen
[2023-12-06] MEDS: POTASSIUM CHLORIDE 20 MEQ ER TABLET 40 MEQ PO (14:06)
--- NOTE | 2023-12-06 17:01 | PM.DS ---
DS: Admitting Diagnosis Discharge Date 12/06/23 Admitting Diagnosis Left-sided weakness COVID Type 2 diabetes mellitus Hypertension DS: Summary Hospital Course Reason for hospitalization: Left-sided weakness COVID Type 2 diabetes mellitus Hypertension Hospital Course: This is a 68-year-old male who presented on 12/03/2023 with nausea, vomiting, weakness, poor p.o. intake.? Hospital included a chest x-ray which was negative.? Head and neck CTA which showed old infarcts in the brain, age-related changes, 50% stenosis of the proximal left internal carotid artery, 0% stenosis on the right, multinodular goiter.? Brain MRI showing old infarcts in the brain, moderate nonspecific cerebral white matter disease. Found to be COVID positive and received a few days of remdesivir. Patient was asymptomatic for COVID symptoms. On examination today patient denies any fever, chills, nausea, vomiting, diarrhea, abdominal pain, chest pain, shortness a breath, lightheadedness, dizziness, vision changes, dysphagia. He states he feels he is back to his normal self. Patient had echocardiogram which shown a normal LV systolic function with an estimated EF of 65-70%, grade 1 diastolic dysfunction, normal RV systolic function. Labs today reveal hemoglobin of 10.4, sodium 134, potassium 3.0, bicarb 15, BUN 44, creatinine 1.5 which is his baseline, EGFR 57, blood sugars ranging 120-179, magnesium 2.4, T 50, ALT 62. Patient states that he is ready to go home. He is stable for discharge at this time. He will need to follow up with Neurology in a couple weeks. He will also need to follow up with his primary care physician in 1 week. We will go ahead and stop remdesivir since he is asymptomatic. Final diagnosis: TIA, COVID Status at Discharge Cognitive/behavioral status at discharge: Alert oriented x4 Functional status at discharge: independent ambulation Overall status at discharge: patient is progressing back to baseline Time Spent with Patient Time attestation: Total time spent providing and/or coordinating discharge services: Time spent: Greater than 30 minutes Exam Narrative: General: In no acute distress, well nourished Head: atraumatic, no encephalopathy Eyes: EOMI, PERRLA, sclera clear ENT: moist mucous membranes, nasal passages clear Neck: supple, no JVD, no adenopathy, trachea midline Cardiac: Normal S1 and S2. No murmur, gallops or friction rubs, peripheral pulses intact. Respiratory: Lungs clear to auscultation, no adventitious lung sounds, room air Gastrointestinal: soft, non-distended, non-tender, normoactive bowel sounds. : voiding without difficulty. Extremities: moves all extremities well, no edema, good ROM, strength 5/5 Skin: clean, dry, intact. No wounds or lesions. Neuro: Alert and oriented x4, cranial nerves intact, no neuro deficits. Psych: normal mood, normal affect, interactive DS: Data Data Completed and Pending Completed studies during hospitalization: Brain MRI Head/neck CTA Chest x-ray Pending studies at discharge: None Labs on day of discharge: Labs from last 24 hours 12/06/23 12/06/23 12/06/23 12:08 08:19 05:26 WBC RBC Hgb Hct MCV MCH MCHC RDW Plt Count MPV Immature Gran % (Auto) Neut % (Auto) Lymph % (Auto) [place] % (Auto) Eos % (Auto) Baso % (Auto) Lymph # (Auto) [place] # (Auto) Eos # (Auto) Baso # (Auto) Abs Immat Gran (auto) Absolute Neuts (auto) Absolute Nucleated RBC Nucleated RBC % Platelet Estimate Poikilocytosis Anisocytosis Jenn Cells Schistocytes Sodium 134 L Potassium 3.0 L Chloride 108 H Carbon Dioxide 15 L Anion Gap 11 BUN 44 H D Creatinine 1.50 H Estim Creat Clear Calc 41 Estimated GFR 57 L Glucose 120 H POC Capillary Glucose 179 H 140 H Calcium 8.6 Magnesium Total Bilirubin 0.5 AST 50 ALT 62 H Alkaline Phosphatase 76 Total Prot
[2023-12-06] MEDS: POTASSIUM CHLORIDE 20 MEQ ER TABLET PO (18:25)
== END 2023-12-06 18:00 | disposition home or self-care (01) | DRG 178 ==
LOC: ANHED 15:37 → ANH2MED 16:11
PROVIDERS: Emergency Medicine; Internal Medicine; Student in an Organized Health Care Education/Training Program; Admitting Provider Family Medicine; Emergency Provider Emergency Medicine; PCP Internal Medicine Infectious Disease; Visit Provider Nurse Practitioner Acute Care
DX: U07.1 COVID-19 (principal); I69.354 Hemiplegia and hemiparesis following cerebral infarction affecting left non-dominant side; I69.322 Dysarthria following cerebral infarction; I69.391 Dysphagia following cerebral infarction; R13.10 Dysphagia, unspecified; E11.9 Type 2 diabetes mellitus without complications; E04.2 Nontoxic multinodular goiter; I10 Essential (primary) hypertension; R29.703 NIHSS score 3; Z79.82 Long term (current) use of aspirin; Z79.02 Long term (current) use of antithrombotics/antiplatelets; Z79.84 Long term (current) use of oral hypoglycemic drugs; Z87.891 Personal history of nicotine dependence
CPT/HCPCS: 36415; 70496; 70498; 70553; 71046; 80053; 80061; 81003; 82248; 82948; 83036; 83735; 85025; 85610; 85652; 87637; 92610; 93005; 93306; 96374; 96375; 97110; 97161; 97165; 97530; 97535; 99285; A9270; A9577; C9113; J0248; J1644; J1815; J2765; J7120; Q9967